=== PATIENT | female | born 1950 | race Caucasian/White ===

== ENCOUNTER → 2017-01-14 | Outpatient (CLI) | payer OTHER ==
[~2017-01-14] MED LIST: ASCO100T PO; CALC500C50; CALCIUM PO; GABA-112 PO; LEVO50TA6 PO; MAGNESIUM PO; MELO7.5T5 PO; OXYC-57 PO; PRLSR20 PO; VITAMIN C PO; ZINC PO
[2017-01-14 13:02] LABS: CHOLESTEROL/HDL RATIO 3.5; THYROID STIMULATING HORMONE 1.77 uIu/ml (0.300-4.500)
== END | disposition home or self-care (01) ==
LOC: C.LABPVFM 06:59
PROVIDERS: ATTEND Family Medicine
DX: Z13.220 Encounter for screening for lipoid disorders (principal); E03.9 Hypothyroidism, unspecified

== ENCOUNTER → 2017-03-03 | Outpatient (CLI) | payer OTHER ==
[~2017-03-03] MED LIST changes: -ASCO100T PO; +ASCO100T4 PO; +FMR25 PO
--- NOTE | 2017-03-03 15:44 | DIAGNOSTIC IMAGING REPORT ---
EXAMINATION: RENAL ULTRASOUND CLINICAL HISTORY: Renal cyst COMPARISON STUDY: 07/31/2015 FINDINGS: The right kidney measures 11.1 cm.. The left kidney measures 10 cm. There is no evidence of hydronephrosis. There is a 12 mm mid pole right renal cyst. There is a 9 mm mid pole left renal cyst. No bladder abnormalities are visualized. Bilateral ureteral jets were visualized. IMPRESSION : 12 mm right renal cyst, slightly smaller than on the preceding 2014 study. 9 mm mid pole left renal cyst, not previously described. Electronically signed by: Heron Quintana M.D. 03/03/2017 3:42 PM Dictated Date/Time: 03/03/2017 3:40 PM
== END | disposition home or self-care (01) ==
LOC: C.ULTR 14:57
PROVIDERS: ATTEND Nurse Practitioner
DX: N28.1 Cyst of kidney, acquired (principal)

== ENCOUNTER → 2017-03-09 | Outpatient (CLI) | payer OTHER ==
--- NOTE | 2017-03-09 15:50 | MAMMOGRAPHY REPORT ---
BILATERAL DIGITAL DIAGNOSTIC MAMMOGRAM TOMOSYNTHESIS WITH CAD AND TARGETED BILATERAL ULTRASOUND: 02/15 CLINICAL HISTORY: 66-year-old woman who noticed a lump in her lateral right breast approximately 3 w eeks ago. Also abnormal sensation/irritation of the right nipple when she is not wearing a bra. No skin changes of the nipple or nipple discharge. Family history of breast cancer = aunt, niece and cousin. Last mammogram was performed in 2000 and is unavailable. TECHNIQUE: Bilateral breast tomosynthesis in addition to standard 2D mammography was performed. Add itional spot magnification left CC and ML views were also obtained. Current study was also evaluate d with a Computer Aided Detection (CAD) system. COMPARISON: No prior exams were available for comparison. BREAST COMPOSITION: The tissue of both breasts is heterogeneously dense, which may obscure small ma sses. FINDINGS: There is a spiculated and irregular dense mass in the 9:00 far posterior right breast yocasta uring 16 x 25 x 16 mm. There is a questionable area of architectural distortion in the slightly lat eral anterior right breast, 3.6 cm distal to the nipple. There is a lobulated and circumscribed 7.1 x 6.5 x 5.6 mm mass in the lower inner middle to posterior right breast. There are coarse benign c alcifications in the right breast. No suspicious clustered microcalcifications. There is a possible 2.3 cm partially circumscribed and obscured mass in the superior middle one thir d of the left breast thought to project laterally based on the tomosynthesis MLO images. There are grouped microcalcifications in the superior middle one third of the left breast for which additional spot magnification views were obtained. With the additional spot magnification views, the calcific ations are somewhat coarse and loosely grouped, probably benign. No focal area of architectural dis tortion or spiculated mass is seen within the left breast. There is a circumscribed mass with lucen t notch in the far superior left breast on the MLO view, most likely an intramammary lymph node. Targeted ultrasound was performed in the superior left breast and also throughout the right breast i ncluding right axilla. Particular attention was paid to the area of palpable concern which was poin nina out by the patient, in the 9:00 right breast, 8 cm from the nipple. In the 9:00 right breast in the area of palpable concern, there is a hypoechoic solid shadowing spiculated mass measuring 27.4 x 17.8 x 14.6 mm. This correlates with the mammographic mass and is suspicious for malignancy. Def initive characterization with ultrasound guided core biopsy is recommended. Sonographic evaluation performed in the right axilla demonstrates one small morphologically normal lymph node. No suspicio us adenopathy. Additional scanning was performed in the lateral right breast to assess for the poss ible subtle area of architectural distortion only seen on the CC view. However, no definite correla te is seen. Scanning was performed in the lower inner quadrant of the right breast to assess for th e lobulated subcentimeter mammographic mass, but no discrete solid or cystic mass is identified. Sonographic evaluation in the superior left breast demonstrates a mixed echogenicity parallel circum scribed solid mass in the 1:00 axis, 4 cm from the nipple, measuring 21.1 x 12.6 x 18.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 IMPRESSION: ACR BI-RADS CATEGORY 5: HIGHLY SUGGESTIVE OF MALIGNANCY, TARGETED ULTRASOUND ACR BI-RAD S CATEGORY 5: HIGHLY SUGGESTIVE OF MALIGNANCY 1. Ultrasound guided core biopsy is recommended for a suspicious solid palpable spiculated 27 mm ma ss in the 9:00 right breast. 2. No suspicious right axillary lymphadenopathy is seen. 3. Pending pathology results in the 9:00 axis, there are indeterminate findings in the right breast without sonographic correlate, including a possible subtle area of architectural distortion in the lateral anterior breast only seen on the CC tomosynthesis images, and a lobulated 7 mm mass in the m edial breast. Ultimately, an MRI may be needed for further characterization. 4. A lobulated, partially circumscribed 2 cm mass in the superior left breast is thought to correla te with a benign fibroadenolipoma or hematoma on ultrasound, identified in the 1:00 axis. 5. There is a loose grouping of microcalcifications in the left upper outer quadrant for which a sh ort interval follow-up diagnostic mammogram including spot magnification views is recommended to ens ure stability in 6 months, given that no prior mammograms are available to demonstrate stability. These results and recommendations were discussed with the patient at the time of the exam. She tent atively scheduled the right breast biopsy prior to leaving our department. Approximately 10% of breast cancers are not detected with mammography. A negative mammographic repor t should not delay biopsy if a clinically suggestive mass is present. Cassy Mccain M.D. ay/:03/09/2017 15:06:56 Steel Die Press Set Up Operator: Rosita Jeffers RT(R)(M), [facility] letter sent: Abnormal 4/5 BI-RADS Code: ACR BI-RADS Category 5: Highly Suggestive Of Malignancy Ultrasound BI-RADS: ACR BI-RA DS Category 5: Highly Suggestive Of Malignancy
== END | disposition home or self-care (01) ==
LOC: C.MAMM 13:56
PROVIDERS: ATTEND Nurse Practitioner
DX: N64.4 Mastodynia (principal); N63 Unspecified lump in breast; Z80.3 Family history of malignant neoplasm of breast

== ENCOUNTER → 2017-03-17 | Outpatient (CLI) | payer OTHER ==
--- NOTE | 2017-03-17 13:12 | Discharge Instructions ---
Discharge Instructions Procedure Procedure Date: March 17, 2017. Reason for visit: Right Mass. Discharge Discharge Date: March 17, 2017. Discharge Diagnosis: post right breast ultrasound guided core biopsy Instructions Activity Recommendations: Additional Limitations (see below) Return to School/Work: no limitations Recommended Home Diet: No Limitations Provider Instructions: ACTIVITY RECOMMENDATIONS: * No lifting, pushing, pulling or exercising the affected side for three days. RETURN TO SCHOOL/WORK: * You may return to work/school after the procedure, but do not perform any strenuous activities for 24 to 48 hours. MEDICATIONS: * Tylenol (two 325 mg) every four to six hours if needed for mild pain (if not allergic to Tylenol). DIET: * Resume previous diet. SPECIAL CARE INSTRUCTIONS: * Keep biopsy site dry for 24 hours. May shower after 24 hours, but do not soak (bathe) incision. * May remove Tegaderm (plastic patch) tomorrow AFTER showering. * Leave the steri-strips on for one week. Allow the steri-strips to fall off by themselves. If not off after one week, you may remove them. You may place a Bandaid crosswise over the strips, if desired. * Apply ice 10 minutes on and 10 minutes off as needed. * Wear a bra at bedtime to sleep more comfortably for 2-3 days. * Your referring physician should have the results after approximately 5 to 7 business days. * Call for unusual bleeding, fever, drainage, etc or if you have any questions call [phone] during normal business hours or after hours call Dr Mccain, . FOLLOW UP VISIT: Follow-up with Referring Physician as scheduled. Allergies Coded Allergies: BEE STING (Verified Allergy, Severe, ANAPHYLACTIC, 03/15/09) Acetaminophen (Verified Allergy, Intermediate, NAUSEA, 09/29/12) Adhesives (Verified Allergy, Intermediate, RASH, 03/15/09) Hydrocodone (Verified Allergy, Intermediate, NAUSEA, 09/29/12) NSAIDs (Verified Allergy, Intermediate, SEVERE NAUSEA/DEHYDRATION, ) MD INSTRUCTED TO NEVER TAKE ANY NSAIDS Unclassified Drugs (Verified Allergy, Unknown, URATHANE CAUSES SKIN TO WEEP, 10/28/12) SHELLFISH (Verified Adverse Reaction, Mild, N/V, 03/15/09) Shannon Chandra Recommendations: Call your doctor if: * Temperature above 101 degrees * Pain not relieved by pain medicine ordered * There is increased drainage or redness from any incision * You have any unanswered questions or concerns. Your Doctors Instructions noted above were prepared by provider Cassy Mccain. Patient Signature Section: Patient Instructions Signature Page Lorainemitch Dennisonevie Patient (or Guardian) Signature/Date: I have read and understand the instructions given to me by my caregivers. Caregiver/RN/Doctor Signature/Date: The above-named patient and/or guardian has received patient instructions on this date. + Original Patient Signature Page (only) stays with chart. Please make copy for patient.
--- NOTE | 2017-03-18 08:26 | MAMMOGRAPHY REPORT ---
THIS REPORT HAS BEEN AMENDED. AMENDMENT: 03/25/2017 Cassy Mccain M.D. Pathology results from the ultrasound-guided core needle biopsy of a mass in the 9:00 right breast y ielded invasive ductal carcinoma, Jordy grade 2 of 3. ER and UT positive, HER-2/alan negative. The pathology results are concordant with the imaging appearance. Given the mammographic finding of questionable architectural distortion in the right breast, and no definite sonographic correlate, as well as dense breast bilaterally and newly diagnosed right breast cancer, recommend a bilateral breast MRI prior to definitive treatment. ULTRASOUND GUIDED BIOPSY RIGHT BREAST: 03/17/2017 CLINICAL HISTORY: 66-year-old woman presents for biopsy of a suspicious 27 mm spiculated mass in the 9:00 right breast. COMPARISON: Comparison is made to exams dated: 03/09/2017 mammogram and 03/09/2017 ultrasound - [facility]. PATIENT CONSENT: The procedure, risks and benefits were discussed with the patient and informed writ ten consent was obtained. Specific risks to this procedure include: bleeding, infection, puncture of adjacent structure, metal allergy, nontarget biopsy, sampling error and medication reaction. PROCEDURE DESCRIPTION: A time out was performed and the right breast was agreed as the site of biops y. The skin was prepped and draped in the usual sterile fashion. The solid spiculated hypoechoic mas s in the 9:00 right breast was chosen as the target for biopsy. Subcutaneous and intraparenchymal 1% buffered lidocaine was administered as local anesthesia. A skin incision was made. Through the inc ision, 3 samples were taken with a 14 gauge Achieve biopsy device. A metallic marker was placed at t he biopsy site. Hemostasis was achieved after manual compression. The patient tolerated the procedur e well and there was no immediate complication. The samples were sent expedited to the pathology de partment in an appropriately labeled container. Postprocedure right CC and ML tomosynthesis images were obtained. A new ribbon-shaped metallic biop sy marker is seen within the mammographic mass in question. No significant post biopsy hematoma is seen. Pending pathology results, bilateral breast MRI would be useful to exclude the possibility of any plummer spicious enhancing architectural distortion in the right breast, with the questionable mammographic finding but no sonographic correlate. IMPRESSION: ULTRASOUND GUIDED BIOPSY Status post ultrasound guided core needle biopsy of a suspicious right 9:00 breast mass, with biopsy marker placed at the site. The patient will receive notification of the biopsy results from her referring physician. Cassy Mccain M.D. ay/:03/17/2017 13:55:56 Archery Equipment Hay Sorter: Sharon BUCKLEY)([place]), [facility]
--- NOTE | 2017-03-18 08:29 | MAMMOGRAPHY REPORT ---
UNILATERAL RIGHT DIGITAL DIAGNOSTIC MAMMOGRAM TOMOSYNTHESIS: 03/17/2017 CLINICAL HISTORY: Suspicious spiculated mass in the 9:00 right breast. Patient presents for ultraso und-guided core biopsy. Please refer to the report from right breast ultrasound guided core biopsy performed at the same emperatriz e for full detail. IMPRESSION: POST PROCEDURE IMAGING FOR MARKER PLACEMENT Please refer to the report from right breast ultrasound guided core biopsy performed at the same emperatriz e for full detail. Approximately 10% of breast cancers are not detected with mammography. A negative mammographic repor t should not delay biopsy if a clinically suggestive mass is present. Cassy Mccain M.D. ay/:03/17/2017 13:14:37 Rn Teacher: Sharon RIKCETTS(Chaim)(M), [facility] BI-RADS Code: Post Procedure Imaging For Marker Placement
== END | disposition home or self-care (01) ==
LOC: C.MAMM 12:40
PROVIDERS: ATTEND Nurse Practitioner
DX: C50.411 Malignant neoplasm of upper-outer quadrant of right female breast (principal); Z17.0 Estrogen receptor positive status [ER+]

== ENCOUNTER → 2017-04-08 | Outpatient (CLI) | payer OTHER ==
--- NOTE | 2017-04-08 10:27 | DIAGNOSTIC IMAGING REPORT ---
PET/CT CLINICAL HISTORY: Breast cancer. COMPARISON STUDY: Renal ultrasound dated 03/03/2017. Ultrasound of the right breast dated 03/09/2017. TECHNIQUE: One hour following the IV administration of 14.69 mCi of F-18 FDG, PET/CT examination was performed from the orbital meatal line through the bony pelvis. Noncontrast CT is performed for the purposes of anatomic correlation and attenuation correction. Note that this does not reflect a diagnostic CT examination. Images were reviewed on a separate [employer] independent workstation. Fused images were obtained. Standard uptake values reported are maximum values within the region of interest expressed in gm/mL. FINDINGS: PET FINDINGS: Head and neck: There is expected physiologic activity within the visualized brain parenchyma at the skull base and the salivary glands. Thorax: Evaluation of the thorax demonstrates expected physiologic myocardial activity. There is a 1.7 x 2.5 cm irregular nodule in the posterior outer right breast seen on image #105. This is FDG avid with maximum SUV of 6.6. No right axillary or subpectoral lymphadenopathy is seen. No FDG avid lesions are identified in the left breast. No pulmonary lesions are seen. Abdomen and pelvis: There is expected activity within the liver, spleen, kidneys, renal collecting system, and bladder. Low-level bowel activity is likely within physical limits. Unenhanced CT images: Visualized brain parenchyma at the skull base is within normal limits. The bony orbits are intact. Orbital contents are normal as visualized. The imaged paranasal sinuses and the mastoid air cells are clear. The salivary and thyroid glands are normal as imaged. There is no cervical lymphadenopathy. The thoracic aorta is normal in caliber. There is no mediastinal or hilar adenopathy. The heart is normal in size and without pericardial effusion. Tiny hiatal hernia is observed. The lungs are clear. A 1.7 cm low-attenuation lesion is suggested in the left hepatic lobe just below the diaphragm image #109. This was not demonstrably FDG avid. The unenhanced liver is otherwise normal as visualized. A tiny calcified gallstone is identified. The gallbladder is otherwise unremarkable. The unenhanced spleen, adrenal glands, pancreas, and kidneys are otherwise grossly unremarkable. The abdominal aorta is normal in course and caliber noting mild atherosclerotic calcification. There is no bowel obstruction. There are scattered colonic diverticula without CT evidence of acute diverticulitis. A normal appendix is noted. There is no intraperitoneal free air or abdominal ascites. There is no abdominal, pelvic, or inguinal lymphadenopathy. The bladder, uterus, and adnexa are normal as imaged. The skeletal structures are osteopenic. No lytic or blastic bony lesions are seen. Minimal spondylotic change is seen throughout the spine. IMPRESSION: 1. There is an irregular 2.5 cm FDG avid mass lesion in the right breast as above. This is consistent with the patient's history of breast carcinoma. 2. There are no additional FDG avid lesions identified in either breast. There is no axillary or subpectoral lymphadenopathy. 3. There is no evidence of distant metastatic disease. 4. Question a 1.7 cm low-attenuation lesion in the left lobe of the liver. This was not FDG avid and is of low suspicion. This may represent a hemangioma and ultrasound of the liver is recommended for further assessment. 5. The lungs are clear. 6. Cholelithiasis. 7. Additional findings as above. Electronically signed by: Stefan Jean M.D. 04/08/2017 10:26 AM Dictated Date/Time: 04/08/2017 9:58 AM
== END | disposition home or self-care (01) ==
LOC: C.PET 07:18
PROVIDERS: ATTEND Internal Medicine Hematology & Oncology
DX: C50.411 Malignant neoplasm of upper-outer quadrant of right female breast (principal); K80.20 Calculus of gallbladder without cholecystitis without obstruction

== ENCOUNTER → 2017-04-17 | Outpatient (CLI) | payer OTHER ==
[~2017-04-17] MED LIST changes: +GADAVIST IV PRN
--- NOTE | 2017-04-20 13:17 | MAMMOGRAPHY REPORT ---
BREAST MRI OF BOTH BREASTS : 04/17/2017 CLINICAL HISTORY: Newly diagnosed right breast cancer. COMPARISON: Comparison is made to exams dated: 03/17/2017 mammogram, 03/17/2017 ultrasound biopsy, 2016 mammogram, and 03/09/2017 ultrasound - [facility]. Technique: The patient was placed prone in a dedicated breast imaging coil. Precontrast axial T1-ana maría ghted, axial T2-weighted fat saturation, and axial T1-weighted fat saturation images were obtained. After the administration of 7.5 mL of Gadavist IV contrast, sequential T1-weighted fat saturation javier ges were obtained. Subtraction images were obtained of the dynamic contrast enhanced sequences, and 3-D reformations were performed. The [employer] software was used for kinetic analysis. Findings: Right breast: There is mild background parenchymal enhancement. There is a spiculated enhancing irre gular mass within the right 8:00 to 8:30 breast posteriorly, measuring 2.0 x 1.7 x 2.7 cm (series 105 01 image 85 and series 6 image 102), consistent with biopsy-proven malignancy. Susceptibility artifa ct is seen within the mass from a biopsy marker clip. The mass demonstrates a mixed kinetic pattern including washout kinetics. Approximately 4 cm anterior to the mass at approximately 8:30 middle dep th is a 6 mm circumscribed enhancing oval mass with corresponding T2 hyperintensity and a mixed kinet ic pattern including washout and plateau kinetics (series 48017 image 83). While this may represent an intramammary lymph node or other benign mass, a second look ultrasound is recommended. Superior t o the malignancy in the right breast at approximately 9:00 middle depth, there is a heterogeneously e nhancing mass which measures 13 x 6 mm and demonstrates a mixed pattern including washout and plateau kinetics (series 26791 images 74-75). This mass is indeterminate and second look ultrasound is recom mended. No suspicious enhancement is seen at the site of the small mammographic mass in the right lo wer inner quadrant; given the benign morphology mammographically and lack of corresponding MRI abnorm ality, the mass is felt to be benign. Left breast: There is mild background parenchymal enhancement. There are no suspicious enhancing mas ses or areas of abnormal enhancement within the left breast. No abnormal enhancement is seen within the area of questionable mammographic architectural distortion; given the lack of corresponding MRI a bnormality, the mammographic finding is benign and felt to represent normal fibroglandular tissue. There is no evidence of axillary adenopathy. The chest wall structures are negative. The visualized extramammary soft tissues are grossly unremarkable. IMPRESSION: ACR BI-RADS CATEGORY 0: INCOMPLETE EVALUATION: NEED ADDITIONAL IMAGING EVALUATION 1. Spiculated enhancing 2.7 cm mass in the right 8:00 to 8:30 breast, consistent with the biopsy-pro sarah malignancy. 2. Heterogeneously enhancing 13 mm mass in the right 9:00 breast and circumscribed 6 mm enhancing ma ss in the right breast at 8:30, which demonstrate mixed kinetics including washout kinetics. The mass es are indeterminate and second look ultrasound is recommended for further evaluation. If suspicious abnormalities are seen on ultrasound, then ultrasound-guided biopsy is recommended (1 hour time slot ). 3. No MRI evidence of malignancy in the left breast. Krystina Clarke M.D. ah/:04/18/2017 20:41:05 Film Reader: chalk molding machine operator, [facility] letter sent: Addl Imaging 0 BI-RADS Code: ACR BI-RADS Category 0: Incomplete Evaluation: Need Additional Imaging Evaluation
== END | disposition home or self-care (01) ==
LOC: C.MRI 12:18
PROVIDERS: ATTEND Nurse Practitioner
DX: C50.411 Malignant neoplasm of upper-outer quadrant of right female breast (principal); N63 Unspecified lump in breast

== ENCOUNTER → 2017-04-29 | Outpatient (CLI) | payer OTHER ==
[~2017-04-29] MED LIST changes: -GADAVIST IV PRN
--- NOTE | 2017-04-29 16:40 | MAMMOGRAPHY REPORT ---
ULTRASOUND OF RIGHT BREAST: 04/29/2017 CLINICAL HISTORY: Biopsy proven right breast cancer, with two enhancing masses seen within the right breast on recent breast MRI, for which second look ultrasound was recommended. COMPARISON: Comparison is made to exams dated: 04/17/2017 breast MRI, 03/17/2017 mammogram, 03/17/2017 ult rasound biopsy, 03/09/2017 mammogram, and 03/09/2017 ultrasound - [facility]. TECHNIQUE: Real-time targeted ultrasound of the right breast was performed. FINDINGS: Real-time, high resolution targeted ultrasound was performed of the area of the masses see n on breast MRI, in the right 8:30 to 9:00 breast. In the right breast at 9:00, 5 cm from the nipple , there is an oval circumscribed 10 x 3 x 5 mm mass, which has an echogenic fatty hilum and periphera l hypoechoic cortex and central internal vascularity. This has the sonographic appearance of a morph ologically normal intramammary lymph node. This is felt to correspond with the circumscribed enhanci ng mass seen on breast MRI, which also has MRI features of an intramammary lymph node including T2 hy perintensity, mixed kinetic pattern, and circumscribed margins. The breast tissue is markedly heterogeneous on ultrasound, with multiple areas of hypoechoic shadowin g seen. 2 areas of ill-defined hypoechoic shadowing are seen within the right breast at 9:30, 8 cm f rom the nipple, as well as right breast at 9:30, 5 cm from the nipple. The shadowing areas do not cl early persist on orthogonal imaging and therefore could represent normal shadowing fibroglandular tis joe. The areas do not clearly correspond with the enhancing mass seen on MRI. The mass on the MRI r emains indeterminate and MRI guided biopsy is recommended for further evaluation. IMPRESSION: ACR BI-RADS CATEGORY 4: SUSPICIOUS - FOLLOW-UP RECOMMENDED 1. Morphologically normal intramammary lymph node in the right breast at 9:00 on ultrasound, which c orresponds with the circumscribed enhancing mass on recent breast MRI. 2. No clear sonographic correlate for the heterogeneously enhancing mass in the right 9:00 breast se en on recent breast MRI. The mass remains indeterminate and an MRI guided core needle biopsy is gunner mmended for further evaluation. A phone call was made to the physician's office to confirm faxed results were received. The patient was verbally notified of the results. She tentatively scheduled the biopsy before leaving the depart ment. Krystina Clarke M.D. ah/:04/29/2017 15:17:41 Site Identification Specialist: Cinthya BUCKLEY)([place]), [facility] letter sent: Abnormal 4/5 BI-RADS Code: ACR BI-RADS Category 4: Suspicious
== END | disposition home or self-care (01) ==
LOC: C.MAMM 13:41
PROVIDERS: ATTEND Surgery
DX: N63 Unspecified lump in breast (principal)

== ENCOUNTER → 2017-05-13 | Outpatient (CLI) | payer OTHER ==
[~2017-05-13] MED LIST changes: +GADAVIST IV PRN; +LIDO/EPINEPHRINE/SOD BICARB 20 ML VIAL INFIL ONE; +XYLOCAINE 1%/SOD BICARB 20 ML VIAL INFIL ONE
--- NOTE | 2017-05-13 11:55 | Discharge Instructions ---
Discharge Instructions Procedure Procedure Date: May 13, 2017. Reason for visit: Right Mass. Discharge Discharge Date: May 13, 2017. Discharge Diagnosis: status post breast biopsy Instructions Activity Recommendations: Additional Limitations (see below) Return to School/Work: no limitations Recommended Home Diet: No Limitations Provider Instructions: ACTIVITY RECOMMENDATIONS: * No lifting, pushing, pulling or exercising the affected side for three days. RETURN TO SCHOOL/WORK: * You may return to work/school after the procedure, but do not perform any strenuous activities for 24 to 48 hours. MEDICATIONS: * Tylenol (two 325 mg) every four to six hours if needed for mild pain (if not allergic to Tylenol). DIET: * Resume previous diet. SPECIAL CARE INSTRUCTIONS: * Keep biopsy site dry for 24 hours. May shower after 24 hours, but do not soak (bathe) incision. * May remove Tegaderm (plastic patch) tomorrow AFTER showering. * Leave the steri-strips on for one week. Allow the steri-strips to fall off by themselves. If not off after one week, you may remove them. You may place a Bandaid crosswise over the strips, if desired. * Apply ice 10 minutes on and 10 minutes off as needed. * Wear a bra at bedtime to sleep more comfortably for 2-3 days. * Your referring physician should have the results after approximately 5 to 7 business days. * Call for unusual bleeding, fever, drainage, etc or if you have any questions call during normal business hours or after hours call Dr Clarke, [phone]. FOLLOW UP VISIT: Follow-up with Referring Physician as scheduled. Allergies Coded Allergies: BEE STING (Verified Allergy, Severe, ANAPHYLACTIC, 03/15/09) Acetaminophen (Verified Allergy, Intermediate, NAUSEA, 09/29/12) Adhesives (Verified Allergy, Intermediate, RASH, 03/15/09) Hydrocodone (Verified Allergy, Intermediate, NAUSEA, 09/29/12) NSAIDs (Verified Allergy, Intermediate, SEVERE NAUSEA/DEHYDRATION, ) MD INSTRUCTED TO NEVER TAKE ANY NSAIDS Unclassified Drugs (Verified Allergy, Unknown, URATHANE CAUSES SKIN TO WEEP, 10/28/12) Shellfish (Verified Adverse Reaction, Mild, N/V, 03/15/09) Shannon Chandra Recommendations: Call your doctor if: * Temperature above 101 degrees * Pain not relieved by pain medicine ordered * There is increased drainage or redness from any incision * You have any unanswered questions or concerns. Your Doctors Instructions noted above were prepared by provider Krystina Clarke. Patient Signature Section: Patient Instructions Signature Page Lorainemitch Dennisonevie Patient (or Guardian) Signature/Date: I have read and understand the instructions given to me by my caregivers. Caregiver/RN/Doctor Signature/Date: The above-named patient and/or guardian has received patient instructions on this date. + Original Patient Signature Page (only) stays with chart. Please make copy for patient.
--- NOTE | 2017-05-13 13:06 | MAMMOGRAPHY REPORT ---
UNILATERAL RIGHT DIGITAL DIAGNOSTIC MAMMOGRAM TOMOSYNTHESIS: 05/13/2017 CLINICAL HISTORY: Status post right breast MRI guided biopsy. TECHNIQUE: Breast tomosynthesis in addition to standard 2D mammography was performed. Postprocedura l right CC and ML tomosynthesis images including C views were obtained. COMPARISON: Comparison is made to exams dated: 05/13/2017 MRI biopsy, 04/29/2017 ultrasound, 04/17/2017 breast MRI, 03/17/2017 mammogram, 03/17/2017 ultrasound biopsy, and 03/09/2017 mammogram - [facility]. BREAST COMPOSITION: The tissue of the right breast is heterogeneously dense, which may obscure small masses. FINDINGS: A new biopsy marker clip is seen in the expected location of the biopsied enhancing mass a t 9:00 seen on MRI. No significant postbiopsy hematoma is seen. IMPRESSION: POST PROCEDURE IMAGING FOR MARKER PLACEMENT New biopsy marker clip status post MRI guided biopsy of a right 9:00 breast mass. Pathology results are pending. Approximately 10% of breast cancers are not detected with mammography. A negative mammographic report should not delay biopsy if a clinically suggestive mass is present. Krystina Clarke M.D. /:05/13/2017 12:42:45 Stopper Grinder: Cinthya Mayorga, [facility] BI-RADS Code: Post Procedure Imaging For Marker Placement
--- NOTE | 2017-05-13 16:09 | MAMMOGRAPHY REPORT ---
MRI BIOPSY RIGHT BREAST: 05/13/2017 CLINICAL HISTORY: Biopsy proven right breast cancer, with a heterogeneously enhancing mass in the rig ht 9:00 breast on MRI. COMPARISON: Comparison is made to exams dated: 04/29/2017 ultrasound, 04/17/2017 breast MRI, 03/17/2017 m ammogram, and 03/17/2017 ultrasound biopsy - [facility]. Technique: Written informed consent was obtained from the patient after discussion of the procedure a s well as risks of MRI guided core needle biopsy. A preprocedural timeout was performed prior to sta rting the procedure. The patient was placed prone on a 1.5 Laina MR scanner. The lateral aspect of the right breast was c leansed with ChloraPrep. The right breast was positioned in a dedicated breast coil and MRI guidance grid device. After localizing sequences were obtained, pre-and postcontrast axial sequences were performed which c onfirm the persistence of the enhancing lesion in the right 9:00 breast. 7.7 mL of Gadavist IV contr ast was administered. Using the images, targeting was performed using the [email or web address] software. The skin was prepped with Betadine through the grid and after local anesthesia was achieved, an intro ducer sheath and localizing obturator were placed into the site using a lateral approach. The locati on of the obturator sheath was confirmed with additional images. Subsequently, multiple samples were obtained from the site using a [employer] 9-gauge vacuum-assisted core biopsy device. Postbiopsy images demonstrate postbiopsy changes in the expected location of the enh ancing mass. Through the introducer sheath, a marker clip was placed. Direct pressure was held at t he biopsy site until hemostasis was achieved. The patient tolerated the procedure without immediate complication. Mammography was obtained at the breast center after completion of the biopsy to confirm marker clip placement. Please see the separa te dictation of the exam for further details. The specimens were sent to pathology for analysis. Wo und care instructions were given to the patient. IMPRESSION: MRI BIOPSY MRI guided core needle biopsy of the enhancing right 9:00 breast mass, with clip placement. The ashwin ent will receive pathology results from her referring provider. Krystina Clarke M.D. /:05/13/2017 13:16:11 Hat Model: Cinthya Mayorga, [facility]
== END | disposition home or self-care (01) ==
LOC: C.MRI 09:49
PROVIDERS: ATTEND Surgery
DX: R92.8 Other abnormal and inconclusive findings on diagnostic imaging of breast (principal); C50.911 Malignant neoplasm of unspecified site of right female breast

== ENCOUNTER → 2017-07-28 | Outpatient (CLI) | payer OTHER ==
[~2017-07-28] MED LIST changes: +ASCO100T PO; -ASCO100T4 PO; -CALC500C50; -CALCIUM PO; -FMR25 PO; -GADAVIST IV PRN; -LIDO/EPINEPHRINE/SOD BICARB 20 ML VIAL INFIL ONE; -MAGNESIUM PO; -VITAMIN C PO; -XYLOCAINE 1%/SOD BICARB 20 ML VIAL INFIL ONE; -ZINC PO
[2017-07-28 17:43] LABS: BLOOD UREA NITROGEN 11 mg/dl (7-18); BUN/CREATININE RATIO 17.5 (10-20); CALCIUM 9.5 mg/dl (8.5-10.1); CARBON DIOXIDE 28 mmol/L (21-32); CHLORIDE 105 mmol/L (98-107); CREATININE 0.64 mg/dl (0.60-1.20); GLUCOSE 107 mg/dl (70-99); POTASSIUM 3.6 mmol/L (3.5-5.1); SODIUM 138 mmol/L (136-145)
[2017-07-28 17:45] LABS: BASO % 0.4 %; BASO ABS # 0.03 K/uL (0-0.2); COMPLETE YES; EOS % 2.3 %; HEMATOCRIT 42.7 % (37-47); IG% 0.2 %; LYMPH % 14.8 %; MEAN CELL VOLUME 90.3 fL (80-100); MEAN CORPUSCULAR HEMOGLOBIN 30.7 pg (25-34); MEAN PLATELET VOLUME 10.2 fL (7.4-10.4); MONO % 7.3 %; PLATELET COUNT 199 K/uL (130-400); RED BLOOD COUNT 4.73 M/uL (4.2-5.4)
== END | disposition home or self-care (01) ==
LOC: C.LABPVFM 10:10
PROVIDERS: ATTEND Nurse Practitioner
DX: Z51.0 Encounter for antineoplastic radiation therapy (principal); C50.111 Malignant neoplasm of central portion of right female breast; E03.9 Hypothyroidism, unspecified; R03.0 Elevated blood-pressure reading, without diagnosis of hypertension

== ENCOUNTER → 2017-08-03 | Outpatient (CLI) | payer OTHER | END | disposition home or self-care (01) | LOC: C.PAPS 13:14 | PROVIDERS: ATTEND Nurse Practitioner | DX: Z12.4 Encounter for screening for malignant neoplasm of cervix (principal) ==

== ENCOUNTER → 2017-09-08 | Outpatient (CLI) | payer OTHER ==
[~2017-09-08] MED LIST changes: -ASCO100T PO; +FMR25 PO; -OXYC-57 PO
--- NOTE | 2017-09-08 15:17 | MAMMOGRAPHY REPORT ---
BILATERAL DIGITAL DIAGNOSTIC MAMMOGRAM TOMOSYNTHESIS WITH CAD AND TARGETED RIGHT ULTRASOUND: 09/08/20 CLINICAL HISTORY: 67-year-old woman with a personal history of right breast invasive ductal carcinoma presents for first evaluation status post right lumpectomy and radiation therapy. She also presents for follow-up of probably benign left breast calcifications. TECHNIQUE: Bilateral breast tomosynthesis in addition to standard 2D mammography was performed. Spot magnification left CC and ML views were also obtained. Current study was also evaluated with a Comp uter Aided Detection (CAD) system. COMPARISON: Comparison is made to exams dated: 05/13/2017 mammogram, 05/13/2017 MRI biopsy, 04/29/2017 ultrasound, 04/17/2017 breast MRI, and 03/17/2017 mammogram - [facility]. BREAST COMPOSITION: The tissue of both breasts is heterogeneously dense, which may obscure small mas ses. FINDINGS: There is mild skin thickening, most prominent in the medial right breast and trabecular leodan ma of the right breast, likely related to prior treatment. A 3.2 x 3.3 cm mass with associated archi tectural distortion is identified in the upper outer posterior right breast, denoting the surgical ca vity. Both the ribbon-shaped biopsy marker clip within the biopsy proven carcinoma and dumbbell shap ed biopsy clip denoting the benign MRI biopsy have been surgically excised. There is no obvious new suspicious mass, asymmetry or suspicious microcalcifications within the right breast. There is a benign coarse calcification and associated nodularity stable in the upper inner middle one third of the left breast. There is a loose grouping of 4-5 somewhat coarse calcifications in the up per outer middle one third of the left breast for which additional spot magnification views were obta ined. On the spot magnification views, these calcifications are stable comparing to the prior spot m agnification views. No new suspicious grouping or cluster is identified. These most likely represen t benign calcifications. No new suspicious mass, new calcifications, asymmetries or distortions are seen in the left breast. Targeted ultrasound was performed along the surgical scar in the 9:00 right breast. There is a hypoe choic to anechoic mass with linear internal septations most likely representing a postsurgical seroma and/or evolving hematoma. There is also edema noted surrounding fat lobules more superficially in t he 9:00 breast. These findings are compatible with the lumpectomy site. IMPRESSION: ACR-BI-RADS CATEGORY 3: PROBABLY BENIGN, TARGETED ULTRASOUND ACR-BI-RADS CATEGORY 3: PRO BABLY BENIGN 1. Expected post treatment changes in the right breast, without definite mammographic evidence of ma lignancy. A six-month follow-up right diagnostic tomosynthesis mammogram and possible ultrasound is recommended to ensure stability in 6 months after treatment. 2. Stable mammographic appearance of the left breast including probably benign 4-5 loosely grouped s omewhat coarse calcifications in the upper outer quadrant. Another six-month follow-up left diagnost ic tomosynthesis mammogram and spot magnification views is recommended given that these calcification s were identified on the patient's baseline. These results and recommendations were discussed with the patient at the time of exam. Approximately 10% of breast cancers are not detected with mammography. A negative mammographic report should not delay biopsy if a clinically suggestive mass is present. Cassy Mccain M.D. ay/:09/08/2017 12:24:39 Flexographic Press Set Up Operator: Lorrie BUCKLEY)([place]), [facility] letter sent: Follow Up Recommended 3 BI-RADS Code: ACR-BI-RADS Category 3: Probably Benign Ultrasound BI-RADS: ACR-BI-RADS Category 3: Pr obably Benign
== END | disposition home or self-care (01) ==
LOC: C.MAMM 10:25
PROVIDERS: ATTEND Surgery
DX: R92.1 Mammographic calcification found on diagnostic imaging of breast (principal); Z85.3 Personal history of malignant neoplasm of breast; Z98.890 Other specified postprocedural states

== ENCOUNTER → 2017-09-09 | Outpatient (CLI) | payer OTHER ==
[2017-09-09 14:21] VITALS: BP 147/94; PULSE 75; TEMP 36.8; O2SAT 97
--- NOTE | 2017-09-09 16:35 | Radiation Oncology Follow-Up ---
Radiation Oncology Follow-Up Date of Visit Sep 09, 2017. Reason For Visit One-month follow-up in cancer survivorship care plan Radiation Completion Date 07/29/17 Diagnosis (1) Cancer of central portion of right female breast Status: Acute Onset Date: 03/17/2017 Stage: ll (A) Permanent Comment: Abnormal right breast mammogram Status post ultrasound-guided core needle biopsy 03/17/2017 Estrogen receptor positive, progesterone receptor positive, HER-2/alan negative Invasive ductal carcinoma grade 2 Status post MRI guided biopsy 05/13/2017, benign Pro-signal score 58 Status post partial mastectomy and sentinel lymph node biopsy 05/27/2017 Stage pT2 [id number] Oncotype DX score of 10 Status post completion of radiation 07/29/2017. She received 3850 cGy utilizing accelerated partial breast irradiation Last Edited By: Becka Allen on Aug 05, 2017 10:59 History of Present Illness Ms. Oliva has a a family history of breast cancer. The patient had a aunt and a cousin who developed breast cancer in the 60s or later and a niece who developed breast cancer in her 50s. She did undergo the BRCA testing and was found negative. She has been followed with screening mammograms. The patient noted a lump in her lateral right breast in early February of this year. She also identified abnormal sensation/irritation of the right nipple when she was not wearing a bra. She noted no skin changes or nipple discharge. Her prior mammogram to that point was in 2000. Patient therefore underwent lateral digital diagnostic mammogram with targeted breast ultrasound on 03/09/2017. This showed a spiculated and irregular dense mass at the 9:00 far posterior right breast position measuring 1.6 x 2.5 x 1.6 cm. There was a questionable area of architectural distortion in the slightly lateral anterior right breast 3.6 cm distal to the nipple. There was a lobulated circumscribed 7.1 x 6.5 x 5.6 mm mass in the lower inner middle to posterior right breast. There was coarse benign calcifications in the right breast but no suspicious clustered microcalcifications appreciated. A possible 2.3 cm partially circumscribed cured mass was noted to superior middle one third of the left breast. There were grouped microcalcifications in the superior middle one third of the left breast for which additional spot magnification views were obtained. With the additional spot magnification views to calcifications are somewhat coarse loosely grouped and probably benign. A circumscribed mass was noted in the far superior left breast on the MLO view likely an intramammary lymph node. Targeted ultrasound was performed in the superior left breast and throughout the right breast including the right axilla. Particular attention was paid to the palpable concern as indicated by the patient. This was at the 9 o'clock position of the right breast 8 cm from the nipple. A hypoechoic solid shadowing spiculated mass was appreciated measuring 2.7 x 1.8 x 1.5 cm. This correlated with the mammographic mass and was suspicious for malignancies. An ultrasound-guided core biopsy was recommended. Sonographic evaluation of the right axilla demonstrated 1 small morphologically normal lymph node with no suspicious lymphadenopathy. Additional scanning of the lateral right breast showed no definite correlation with the mammographic suspicious findings noted. Sonographic evaluation of the superior left breast demonstrated a mixed echogenic solid mass at the 1:00 axis 4 cm from the nipple measuring 2.1 x 1.3 x 1.9 cm. 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 On 03/17/2017 patient underwent ultrasound-guided core biopsy of the right breast at the 9 o'clock position. This revealed an invasive ductal carcinoma, Jordy grade 2 of 3. No lymphovascular invasion was identified. Estrogen receptors were positive (100%, strong intensity, H score 300). Progesterone receptors were positive (50%, variable in intensity, H score 100). HER-2/alan overexpression was negative and confirmed an negative by FISH analysis confirming the appropriate results obtained by IHC. Ki-67 proliferation index was 12%. Case: [id number]. Patient was seen by Dr. hCarles Dickson for evaluation of adjuvant treatment considerations. He recommended a staging PET/CT scan which was performed on . This showed a 1.7 x 2.5 cm irregular nodule in the posterior outer right breast with a maximum SUV of 6.6. No right axillary and subpectoral lymphadenopathy was seen. No FDG avid lesions were noted in the left breast. No evidence of distant metastatic disease was noted. A 1.7 cm low attenuation lesion was noted in the left lobe of the liver. This was not FDG avid and was of low suspicion. Patient went on to have bilateral breast MRIs on 04/17/2017. In the right breast a spiculated enhancing irregular mass was seen within the right 8 12/24/1930 position posteriorly measuring 2.0 x 1.7 x 2.7 cm. This was consistent with the biopsy-proven malignancy. Proxy 4 cm anterior to the mass at the 8:30 middle depth was a 6 mm circumscribed enhancing oval mass. Recommended second look ultrasound was made. Superior to the malignancy in the right breast at approximately 9:00 middle depth was a enhancing mass measuring 1.3 x 0.6 cm that was indeterminate second look ultrasound recommended. The left breast was unremarkable. No axillary adenopathy was identified. Patient was subsequently seen by Dr. Farhana Aden to discuss further diagnostic procedures and treatment options. On 05/13/2017 she ordered an MRI guided biopsy of the right breast the 9 o'clock position. This revealed benign breast tissue without evidence of in situ or invasive carcinoma. Case: [id number]. After discussion of treatment options patient agreed to proceed with a breast conserving technique. Therefore on 05/27/2017 patient underwent a right breast lumpectomy and sentinel node biopsies. 2 sentinel nodes were identified and both were negative for metastatic carcinoma. The lumpectomy specimen revealed a residual invasive carcinoma histologic grade 2 measuring 2.9 cm in greatest dimension. All inked margins of resection were negative for carcinoma 0.2 mm away from the anterior margin and 2 mm away from the inked posterior margin. Additional medial, superior, lateral and inferior margins were taken and were negative. A total of 3 nodes were identified 2 sentinel as noted above negative and one non-sentinel which was also negative. Final AJCC pathologic staging was therefore pT2 pN0(sn-), ER positive, UT positive and HER-2/alan negative. Accession #: [id number]. The tissue was subsequently sent for Sm[employer]run PAM50 genomic evaluation. The results indicated an intermediate risk score of 58. The intermediate category ranged from 41-60. This is therefore high intermediate risk region. The tissue is also been sent for Oncotype DX recurrence score evaluation. These results are pending. We were asked to see the patient to discuss the role of adjuvant radiation. It is for this reason the patient is seen in referral. The options of treatment were reviewed. She underwent a CT simulation was found to be a candidate for accelerated partial breast irradiation. This was completed 07/29/2017. She received 3850 cGy Interim History She has been doing well over this past month. She has noted a pink discoloration to the breast. There is mild discomfort. She is noted no masses no change of the axilla. She said no swelling of her arm. She is started antiestrogen therapy with Femara. She is tolerating this well. She was seen by medical oncology and mammogram was ordered as well as an ultrasound. Study did not show any evidence of malignancy. There was recommendation for follow- up in 6 months of both breasts. Allergies Coded Allergies: BEE STING (Verified Allergy, Severe, ANAPHYLACTIC, 03/15/09) Adhesives (Verified Allergy, Intermediate, RASH, 03/15/09) Unclassified Drugs (Verified Allergy, Unknown, URATHANE CAUSES SKIN TO WEEP, 10/28/12) Shellfish (Verified Adverse Reaction, Mild, N/V, 03/15/09) Home Medications Scheduled Gabapentin (Neurontin), 100 MG PO TID Letrozole (Femara), 1 TAB PO DAILY Levothyroxine Sodium (Levothyroxine Sodium), 1 TAB PO DAILY Omeprazole (Prilosec), 20 MG PO DAILY Scheduled PRN Meloxicam (Mobic), 7.5 MG PO DAILY PRN for prn Review of Systems Gastrointestinal: GI Comments: loose stools Oral: Symptoms: No Problems Respiratory: Symptoms: Dry Cough Other Respiratory: cough started after finished RT better now Urinary: Symptoms: WNL Skin: Symptoms: Faint Erythema Other Skin Symptoms: patient states skin feels warm to touch Breast: Right Upper Arm Measurement: 29.5 Right Mid Arm Measurement: 24.6 Right Wrist Measurement: 16.3 Left Upper Arm Measurement: 28.7 Left Mid Arm Measurement: 25.3 Left Wrist Measurement: 16.4 Arm Dominence: Right Physical Exam Vital Signs Date Time Temp Pulse Resp B/P (MAP) Pulse Ox O2 Delivery O2 Flow Rate FiO2 09/09/17 14:21 36.8 75 20 147/94 97 Pain: Pain Onset: years Pain Duration: intermet Side: Left Patient Pain Scale: 0 - 10 Initial Pain Intensity: 6.0 Pain Description: Sharp Additional Comments: pt states needs knee replacemente Fatigue: None General Appearance: no apparent distress Eyes: normal inspection, EOMI ENT: normal ENT inspection, hearing grossly normal Neck: no adenopathy, thyroid normal Respiratory/Chest: lungs clear, no respiratory distress, no accessory muscle use Breast: Breast examination reveals well-healed incisions of the right breast. There are no masses or tenderness and no axillary adenopathy. There is resolving erythema in the central portion of the breast. There is no edema. She has no skin retractions or nipple changes. She has no wet or dry desquamation. Using the Hayward score cosmesis she has a good outcome. Left breast showed no masses or tenderness no axillary adenopathy. Cardiovascular: regular rate, rhythm, no gallop, no murmur Abdomen: non tender, soft, no organomegaly Neurologic/Psychiatric: no motor/sensory deficits, alert, normal mood/affect Skin: warm/dry Laboratory Studies Test 07/28/17 13:45 White Blood Count 8.10 K/uL (4.8-10.8) Red Blood Count 4.73 M/uL (4.2-5.4) Hemoglobin 14.5 g/dL (12.0-16.0) Hematocrit 42.7 % (37-47) Mean Corpuscular Volume 90.3 fL (80-100) Mean Corpuscular Hemoglobin 30.7 pg (25-34) Mean Corpuscular Hemoglobin Concent 34.0 g/dl (32-36) Platelet Count 199 K/uL (130-400) Mean Platelet Volume 10.2 fL (7.4-10.4) Neutrophils (%) (Auto) 75.0 % Lymphocytes (%) (Auto) 14.8 % Monocytes (%) (Auto) 7.3 % Eosinophils (%) (Auto) 2.3 % Basophils (%) (Auto) 0.4 % Neutrophils # (Auto) 6.07 K/uL (1.4-6.5) Lymphocytes # (Auto) 1.20 K/uL (1.2-3.4) Monocytes # (Auto) 0.59 K/uL (0.11-0.59) Eosinophils # (Auto) 0.19 K/uL (0-0.5) Basophils # (Auto) 0.03 K/uL (0-0.2) RDW Standard Deviation 44.6 fL (36.4-46.3) RDW Coefficient of Variation 13.6 % (11.5-14.5) Immature Granulocyte % (Auto) 0.2 % Immature Granulocyte # (Auto) 0.02 K/uL (0.00-0.02) Sodium Level 138 mmol/L (136-145) Potassium Level 3.6 mmol/L (3.5-5.1) Chloride Level 105 mmol/L (98-107) Carbon Dioxide Level 28 mmol/L (21-32) Anion Gap 5.0 mmol/L (3-11) Blood Urea Nitrogen 11 mg/dl (7-18) Creatinine 0.64 mg/dl (0.60-1.20) Estimated GFR () 107.0 Estimated GFR (Non- 92.3 BUN/Creatinine Ratio 17.5 (10-20) Random Glucose 107 mg/dl (70-99) Calcium Level 9.5 mg/dl (8.5-10.1) Thyroid Stimulating Hormone (TSH) 2.030 uIu/ml (0.300-4.500) Additional Studies Patient: RODY OLIVA [facility] Rec: [id number] Address1: [address] [place] [address] [facility] [id number] Date: 1950 Sex: F Ref Phy: Librado Manzo MD Att Phy: Farhana Aden MD Elizabeth Phy: Tamia John C.R.N.P Inter Phy: Cassy Mccain MD [facility] Zip: [place] [address] SC: C.MAMM Report #: [id number] Diagnostics Tech: LUH Diagnosis: 6 MO F/U LEFT Service Date: 09/08/17 MNE: [id number] Ordering Dr: Farhana Aden MD CC: Farhana Aden MD CONF: DICTATED BY: Cassy Mccain MD MAMMOGRAPHY REPORT BILATERAL DIGITAL DIAGNOSTIC MAMMOGRAM TOMOSYNTHESIS WITH CAD AND TARGETED RIGHT ULTRASOUND: 09/08/2017 CLINICAL HISTORY: 67-year-old woman with a personal history of right breast invasive ductal carcinoma presents for first evaluation status post right lumpectomy and radiation therapy. She also presents for follow-up of probably benign left breast calcifications. TECHNIQUE: Bilateral breast tomosynthesis in addition to standard 2D mammography was performed. Spot magnification left CC and ML views were also obtained. Current study was also evaluated with a Computer Aided Detection (CAD ) system. COMPARISON: Comparison is made to exams dated: 05/13/2017 mammogram, 05/13/2017 MRI biopsy, 04/29/2017 ultrasound, 04/17/2017 breast MRI, and 03/17/2017 mammogram - [facility]. BREAST COMPOSITION: The tissue of both breasts is heterogeneously dense, which may obscure small masses. FINDINGS: There is mild skin thickening, most prominent in the medial right breast and trabecular edema of the right breast, likely related to prior treatment. A 3.2 x 3.3 cm mass with associated architectural distortion is identified in the upper outer posterior right breast, denoting the surgical cavity. Both the ribbon-shaped biopsy marker clip within the biopsy proven carcinoma and dumbbell shaped biopsy clip denoting the benign MRI biopsy have been surgically excised. There is no obvious new suspicious mass, asymmetry or suspicious microcalcifications within the right breast. There is a benign coarse calcification and associated nodularity stable in the upper inner middle one third of the left breast. There is a loose grouping of 4 -5 somewhat coarse calcifications in the upper outer middle one third of the left breast for which additional spot magnification views were obtained. On the spot magnification views, these calcifications are stable comparing to the prior spot magnification views. No new suspicious grouping or cluster is identified. These most likely represent benign calcifications. No new suspicious mass, new calcifications, asymmetries or distortions are seen in the left breast. Targeted ultrasound was performed along the surgical scar in the 9:00 right breast. There is a hypoechoic to anechoic mass with linear internal septations most likely representing a postsurgical seroma and/or evolving hematoma. There is also edema noted surrounding fat lobules more superficially in the 9:00 breast. These findings are compatible with the lumpectomy site. IMPRESSION: ACR-BI-RADS CATEGORY 3: PROBABLY BENIGN, TARGETED ULTRASOUND ACR-BI -RADS CATEGORY 3: PROBABLY BENIGN 1. Expected post treatment changes in the right breast, without definite mammographic evidence of malignancy. A six-month follow-up right diagnostic tomosynthesis mammogram and possible ultrasound is recommended to ensure stability in 6 months after treatment. 2. Stable mammographic appearance of the left breast including probably benign 4-5 loosely grouped somewhat coarse calcifications in the upper outer quadrant. Another six-month follow-up left diagnostic tomosynthesis mammogram and spot magnification views is recommended given that these calcifications were identified on the patient's baseline. These results and recommendations were discussed with the patient at the time of exam. Approximately 10% of breast cancers are not detected with mammography. A negative mammographic report should not delay biopsy if a clinically suggestive mass is present. Cassy Mccain M.D. ay/:09/08/2017 12:24:39 Prompt Care Rn: Lorrie RICKETTS (R)([place]), [facility] letter sent: Follow Up Recommended 3 BI-RADS Code: ACR-BI-RADS Category 3: Probably Benign Ultrasound BI-RADS: ACR- BI-RADS Category 3: Probably Benign Dictated by: Cassy Mccain MD Signed by: Cassy Mccain MD Assessment & Plan Plan: Continue with scheduled mammography. Continue regular follow-up with Dr. Manzo, Dr. Aden, and her primary care physician. She continues on Femara. We asked her to return to our office in 6 months. Today we completed a cancer survivorship care plan. A copy of the document was given to the patient. She was also given a survivorship booklet. We discussed the mild discoloration of the breast. This is post radiation changes. We reviewed that this will look more brown with hyperpigmentation and then will fade. She may call our office if she has any questions or concerns in the interim. Total Time In Follow-Up I spent 20 minutes speaking to the patient and performing examination. I spent 20 minutes reviewing information, preparing the survivorship document, and completing this note. Copy To Farhana Aden MD; Librado Manzo MD; Tamia John, C.R.N.P Problem Qualifiers (1) Cancer of central portion of right female breast: Estrogen receptor status: positive Qualified Codes: C50.111 - Malignant neoplasm of central portion of right female breast; Z17.0 - Estrogen receptor positive status [ER+]
== END | disposition home or self-care (01) ==
LOC: C.ONC 14:13
PROVIDERS: ATTEND Physician Assistant Medical
DX: Z08 Encounter for follow-up examination after completed treatment for malignant neoplasm (principal); Z92.3 Personal history of irradiation; Z85.3 Personal history of malignant neoplasm of breast

== ENCOUNTER → 2017-11-06 | Outpatient (CLI) | payer OTHER ==
--- NOTE | 2017-11-06 08:03 | DIAGNOSTIC IMAGING REPORT ---
GALLBLADDER-ABD LIMITED CLINICAL HISTORY: 67 years-old Female presenting with K21.0 Chronic reflux [id number] Abdominal pain, RUQR11.0. TECHNIQUE: Real-time grayscale and limited color Doppler ultrasound imaging of the abdomen limited to the right upper quadrant was performed. COMPARISON: Renal ultrasound from 03/03/2017. FINDINGS: Pancreas: Visualized portions of the pancreatic head and body normal. Liver: Normal echogenicity and echotexture. The liver measures 13.3 cm in maximal sagittal dimension. No sonographic evidence of hepatic mass. Main portal vein patent with normal directional flow. Biliary: No intrahepatic biliary ductal dilatation. Common bile duct measures up to 5 mm in diameter. Gallbladder: No evidence of gallstones, gallbladder wall thickening, gallbladder distention, or pericholecystic fluid or inflammatory change. Right kidney: Interpolar 1.2 cm simple cyst. No hydronephrosis. Ascites: None. IMPRESSION: Essentially normal right upper quadrant ultrasound. Electronically signed by: Sravan Duque M.D. 11/06/2017 8:01 AM Dictated Date/Time: 11/06/2017 7:53 AM
== END | disposition home or self-care (01) ==
LOC: C.ULTR 07:19
PROVIDERS: ATTEND Nurse Practitioner
DX: K21.0 Gastro-esophageal reflux disease with esophagitis (principal); R11.0 Nausea; R10.11 Right upper quadrant pain

== ENCOUNTER → 2017-11-27 | Outpatient (CLI) | payer OTHER ==
--- NOTE | 2017-11-27 16:25 | DIAGNOSTIC IMAGING REPORT ---
PELVIS/BILATERAL HIP 2 VIEWS CLINICAL HISTORY: BILATERAL HIPS pain COMPARISON STUDY: None FINDINGS: Moderate degenerative change right hip. Significant degenerative change left hip. Peripheral osteophytic change surrounding the left femoral head and associated acetabulum. No abnormal soft tissue calcifications. No evidence for acetabular protrusion. Moderate degenerative change of the sacroiliac joints bilaterally. IMPRESSION: 1. Significant degenerative change left hip. 2. Moderate degenerative change right hip. 3. No acute process. The above report was generated using voice recognition software. It may contain grammatical, syntax or spelling errors. Electronically signed by: Chandler Adams M.D. 11/27/2017 4:24 PM Dictated Date/Time: 11/27/2017 4:23 PM
== END | disposition home or self-care (01) ==
LOC: C.RADPV 16:05
PROVIDERS: ATTEND Nurse Practitioner
DX: M25.551 Pain in right hip (principal); M25.552 Pain in left hip; M89.8X5 Other specified disorders of bone, thigh

== ENCOUNTER → 2018-02-09 | Outpatient (CLI) | payer OTHER ==
--- NOTE | 2018-02-09 13:04 | MAMMOGRAPHY REPORT ---
BILATERAL DIGITAL DIAGNOSTIC MAMMOGRAM TOMOSYNTHESIS WITH CAD AND TARGETED RIGHT ULTRASOUND: 8 CLINICAL HISTORY: 67-year-old woman with a personal history of right breast cancer status post breast conservation treatment presents with sensation of pain and bulging/swelling in the lower inner quadr ant of the right breast, which seems to occur at the end of the day. Patient also reports pain with underwire bras. Also due for follow-up of probably benign calcifications in the upper outer quadrant of the left breast. TECHNIQUE: Bilateral breast tomosynthesis in addition to standard 2D mammography was performed. Spot magnification left CC and ML views were also obtained. A repeat right MLO 2D and tomosynthesis view was attempted to include more posterior tissue. Current study was also evaluated with a Computer ded Detection (CAD) system. COMPARISON: Comparison is made to exams dated: 09/08/2017 ultrasound, 09/08/2017 mammogram, 7 mammogram, 05/13/2017 MRI biopsy, 03/17/2017 mammogram, and 03/09/2017 mammogram - [facility]. BREAST COMPOSITION: The tissue of both breasts is heterogeneously dense, which may obscure small mas ses. FINDINGS: Linear scar markers overlie the right upper outer quadrant and right axilla. There is a sq uare shaped pain marker overlying the lower inner middle one third of the right breast. There is exp ected architectural distortion in the upper outer posterior right breast, at the site of prior lumpec everardo. Mild diffuse right breast skin thickening and trabecular edema persists comparing to prior pos ttreatment mammograms. No obvious new mass, asymmetry, distortion or calcifications are identified i n the right breast in the area of swelling and pain or elsewhere throughout the remainder of the righ t breast. There is scar retraction and decreased size of a focal asymmetry likely representing posts urgical seroma and/or hematoma, in the upper outer right breast at the site of prior lumpectomy. The coarse heterogeneous loosely grouped calcifications in the upper outer quadrant of the left breast a re stable based on spot magnification views dating back to at least 03/09/2017, therefore likely benig n. No new suspicious mass, architectural distortion or cluster of microcalcifications is seen in the left breast. Targeted ultrasound was performed in the area of swelling and pain in the 4:00 right breast, 4 cm fro m the nipple. There is evidence of trabecular edema surrounding fat lobules in the 4:00 right breast and also skin thickening, measuring up to 4.1 mm in thickness. However, there is no evidence of a d rainable fluid collection or suspicious solid or cystic mass. IMPRESSION: ACR-BI-RADS CATEGORY 3: PROBABLY BENIGN, TARGETED ULTRASOUND ACR-BI-RADS CATEGORY 3: PRO BABLY BENIGN 1. There is no new suspicious mammographic or targeted sonographic evidence of malignancy in the are a of pain and swelling in the 4:00 right breast. There is evidence of skin thickening and trabecular edema in this location, suggesting the symptoms may be due to those findings, possibly related to pr ior treatment. Continued clinical follow-up and clinical monitoring is recommended, as biopsy of a c linically suspicious mass should not be precluded by negative imaging. 2. There is probable scar retraction and decreasing postsurgical seroma and/or hematoma in the upper outer posterior right breast at the site of prior lumpectomy. Another short interval follow-up righ t diagnostic mammogram is recommended to ensure stability in 6 months. 3. Stable loosely grouped coarse heterogeneous calcifications in the upper outer middle one third of the left breast for 1 year. Another 12 month follow-up left diagnostic mammogram including spot mag nification views is recommended to ensure longer stability. These results and recommendations were discussed with the patient at the time of the exam. She tenta tively scheduled a follow-up appointment prior to leaving the department. Approximately 10% of breast cancers are not detected with mammography. A negative mammographic report should not delay biopsy if a clinically suggestive mass is present. Cassy Mccain M.D. ay/:02/09/2018 09:45:00 Marketing Team Lead: Cinthya RICKETTS(R)(M), [facility] letter sent: Follow Up Recommended 3 BI-RADS Code: ACR-BI-RADS Category 3: Probably Benign Ultrasound BI-RADS: ACR-BI-RADS Category 3: Pr obably Benign
== END | disposition home or self-care (01) ==
LOC: C.MAMM 08:53
PROVIDERS: ATTEND Internal Medicine Hematology & Oncology
DX: N64.4 Mastodynia (principal); R60.0 Localized edema; R92.1 Mammographic calcification found on diagnostic imaging of breast; Z85.3 Personal history of malignant neoplasm of breast

== ENCOUNTER → 2018-03-09 | Outpatient (CLI) | payer OTHER ==
[~2018-03-09] MED LIST changes: +LISI10TA PO
[2018-03-09 14:06] VITALS: BP 149/87; PULSE 76; TEMP 36.8; O2SAT 97
--- NOTE | 2018-03-09 16:08 | Radiation Oncology Follow-Up ---
Radiation Oncology Follow-Up Date of Visit Mar 09, 2018. Reason For Visit Six-month follow-up Radiation Completion Date 07/29/17 APBI Diagnosis (1) Cancer of central portion of right female breast Status: Resolved Onset Date: 03/17/2017 Stage: ll (A) Permanent Comment: Abnormal right breast mammogram Status post ultrasound-guided core needle biopsy 03/17/2017 Estrogen receptor positive, progesterone receptor positive, HER-2/alan negative Invasive ductal carcinoma grade 2 Status post MRI guided biopsy 05/13/2017, benign Pro-signal score 58 Status post partial mastectomy and sentinel lymph node biopsy 05/27/2017 Stage pT2 [id number] Oncotype DX score of 10 Status post completion of radiation 07/29/2017. She received 3850 cGy utilizing accelerated partial breast irradiation Last Edited By: Becka Allen on Aug 05, 2017 10:59 History of Present Illness Ms. Oliva has a a family history of breast cancer. The patient had a aunt and a cousin who developed breast cancer in the 60s or later and a niece who developed breast cancer in her 50s. She did undergo the BRCA testing and was found negative. She has been followed with screening mammograms. The patient noted a lump in her lateral right breast in early February of this year. She also identified abnormal sensation/irritation of the right nipple when she was not wearing a bra. She noted no skin changes or nipple discharge. Her prior mammogram to that point was in 2000. Patient therefore underwent lateral digital diagnostic mammogram with targeted breast ultrasound on 03/09/2017. This showed a spiculated and irregular dense mass at the 9:00 far posterior right breast position measuring 1.6 x 2.5 x 1.6 cm. There was a questionable area of architectural distortion in the slightly lateral anterior right breast 3.6 cm distal to the nipple. There was a lobulated circumscribed 7.1 x 6.5 x 5.6 mm mass in the lower inner middle to posterior right breast. There was coarse benign calcifications in the right breast but no suspicious clustered microcalcifications appreciated. A possible 2.3 cm partially circumscribed cured mass was noted to superior middle one third of the left breast. There were grouped microcalcifications in the superior middle one third of the left breast for which additional spot magnification views were obtained. With the additional spot magnification views to calcifications are somewhat coarse loosely grouped and probably benign. A circumscribed mass was noted in the far superior left breast on the MLO view likely an intramammary lymph node. Targeted ultrasound was performed in the superior left breast and throughout the right breast including the right axilla. Particular attention was paid to the palpable concern as indicated by the patient. This was at the 9 o'clock position of the right breast 8 cm from the nipple. A hypoechoic solid shadowing spiculated mass was appreciated measuring 2.7 x 1.8 x 1.5 cm. This correlated with the mammographic mass and was suspicious for malignancies. An ultrasound-guided core biopsy was recommended. Sonographic evaluation of the right axilla demonstrated 1 small morphologically normal lymph node with no suspicious lymphadenopathy. Additional scanning of the lateral right breast showed no definite correlation with the mammographic suspicious findings noted. Sonographic evaluation of the superior left breast demonstrated a mixed echogenic solid mass at the 1:00 axis 4 cm from the nipple measuring 2.1 x 1.3 x 1.9 cm. 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 On 03/17/2017 patient underwent ultrasound-guided core biopsy of the right breast at the 9 o'clock position. This revealed an invasive ductal carcinoma, Jodry grade 2 of 3. No lymphovascular invasion was identified. Estrogen receptors were positive (100%, strong intensity, H score 300). Progesterone receptors were positive (50%, variable in intensity, H score 100). HER-2/alan overexpression was negative and confirmed an negative by FISH analysis confirming the appropriate results obtained by IHC. Ki-67 proliferation index was 12%. Case: [id number]. Patient was seen by Dr. Charles Dickson for evaluation of adjuvant treatment considerations. He recommended a staging PET/CT scan which was performed on . This showed a 1.7 x 2.5 cm irregular nodule in the posterior outer right breast with a maximum SUV of 6.6. No right axillary and subpectoral lymphadenopathy was seen. No FDG avid lesions were noted in the left breast. No evidence of distant metastatic disease was noted. A 1.7 cm low attenuation lesion was noted in the left lobe of the liver. This was not FDG avid and was of low suspicion. Patient went on to have bilateral breast MRIs on 04/17/2017. In the right breast a spiculated enhancing irregular mass was seen within the right 8 12/24/1930 position posteriorly measuring 2.0 x 1.7 x 2.7 cm. This was consistent with the biopsy-proven malignancy. Proxy 4 cm anterior to the mass at the 8:30 middle depth was a 6 mm circumscribed enhancing oval mass. Recommended second look ultrasound was made. Superior to the malignancy in the right breast at approximately 9:00 middle depth was a enhancing mass measuring 1.3 x 0.6 cm that was indeterminate second look ultrasound recommended. The left breast was unremarkable. No axillary adenopathy was identified. Patient was subsequently seen by Dr. Farhana Aden to discuss further diagnostic procedures and treatment options. On 05/13/2017 she ordered an MRI guided biopsy of the right breast the 9 o'clock position. This revealed benign breast tissue without evidence of in situ or invasive carcinoma. Case: [id number]. After discussion of treatment options patient agreed to proceed with a breast conserving technique. Therefore on 05/27/2017 patient underwent a right breast lumpectomy and sentinel node biopsies. 2 sentinel nodes were identified and both were negative for metastatic carcinoma. The lumpectomy specimen revealed a residual invasive carcinoma histologic grade 2 measuring 2.9 cm in greatest dimension. All inked margins of resection were negative for carcinoma 0.2 mm away from the anterior margin and 2 mm away from the inked posterior margin. Additional medial, superior, lateral and inferior margins were taken and were negative. A total of 3 nodes were identified 2 sentinel as noted above negative and one non-sentinel which was also negative. Final AJCC pathologic staging was therefore pT2 pN0(sn-), ER positive, NJ positive and HER-2/alan negative. Accession #: [id number]. The tissue was subsequently sent for Layer PAM50 genomic evaluation. The results indicated an intermediate risk score of 58. The intermediate category ranged from 41-60. This is therefore high intermediate risk region. The tissue is also been sent for Oncotype DX recurrence score evaluation. These results are pending. We were asked to see the patient to discuss the role of adjuvant radiation. It is for this reason the patient is seen in referral. The options of treatment were reviewed. She underwent a CT simulation was found to be a candidate for accelerated partial breast irradiation. This was completed 07/29/2017. She received 3850 cGy Interim History She has been having a discomfort of the right breast towards the inframammary fold. She made the decision to stop wearing an underwire bra. With doing that the discomfort has resolved. She has an occasional mild pink discoloration to the rest after working for a long period of time. She also notices some swelling in the lower portion of the breast. She is noted no masses and no change of the axilla. She is on Femara. She does have some generalized joint discomfort. She also has dryness of the skin for which she is trying to moisturize frequently. She is up-to-date on mammography. Allergies Coded Allergies: BEE STING (Verified Allergy, Severe, ANAPHYLACTIC, 03/15/09) Adhesives (Verified Allergy, Intermediate, RASH, 03/15/09) Unclassified Drugs (Verified Allergy, Unknown, URATHANE CAUSES SKIN TO WEEP, 10/28/12) Shellfish (Verified Adverse Reaction, Mild, N/V, 03/15/09) Home Medications Scheduled Gabapentin (Neurontin), 100 MG PO TID Letrozole (Femara), 1 TAB PO DAILY Levothyroxine Sodium (Levothyroxine Sodium), 1 TAB PO DAILY Lisinopril (Prinivil), 10 MG PO DAILY Omeprazole (Prilosec), 20 MG PO DAILY Scheduled PRN Meloxicam (Mobic), 7.5 MG PO DAILY PRN for prn Review of Systems Gastrointestinal: Symptoms: WNL Oral: Symptoms: No Problems Respiratory: Symptoms: WNL Urinary: Symptoms: WNL Breast: Right Upper Arm Measurement: 30.5 Right Mid Arm Measurement: 25.3 Right Wrist Measurement: 16.3 Left Upper Arm Measurement: 30.3 Left Mid Arm Measurement: 25.8 Left Wrist Measurement: 16.5 Arm Dominence: Right Physical Exam Vital Signs Date Time Temp Pulse Resp B/P (MAP) Pulse Ox O2 Delivery O2 Flow Rate FiO2 03/09/18 14:06 36.8 76 16 149/87 97 Fatigue: None General Appearance: no apparent distress Eyes: normal inspection, EOMI ENT: normal ENT inspection, hearing grossly normal Neck: no adenopathy, thyroid normal Respiratory/Chest: lungs clear, no respiratory distress, no accessory muscle use Breast: Breast examination reveals well-healed incisions of the right breast. It is noted that she has some mild edema in the lower quadrants. There are no masses or tenderness and no axillary adenopathy. Using the Pingree score cosmesis she has a good outcome. The left breast showed no masses or tenderness and no axillary adenopathy. Cardiovascular: regular rate, rhythm, no gallop, no murmur Extremities: no pedal edema Neurologic/Psychiatric: no motor/sensory deficits, alert, normal mood/affect Skin: warm/dry Pain Management Patient Reports Pain: No Pain Location: None Patient Preferred Pain Scale: 0 - 10 Initial Pain Intensity: 0.0 Pain Management Plan She currently denied pain those stated occasionally she has arthralgias. Laboratory Laboratory Results: not applicable Pathology Pathology Results: were reviewed, and pertinent findings noted in HPI Imaging Imaging Studies: were reviewed, and pertinent findings noted below Imaging Comments BILATERAL DIGITAL DIAGNOSTIC MAMMOGRAM TOMOSYNTHESIS WITH CAD AND TARGETED RIGHT ULTRASOUND: 02/09/2018 CLINICAL HISTORY: 67-year-old woman with a personal history of right breast cancer status post breast conservation treatment presents with sensation of pain and bulging/swelling in the lower inner quadrant of the right breast, which seems to occur at the end of the day. Patient also reports pain with underwire bras. Also due for follow-up of probably benign calcifications in the upper outer quadrant of the left breast. TECHNIQUE: Bilateral breast tomosynthesis in addition to standard 2D mammography was performed. Spot magnification left CC and ML views were also obtained. A repeat right MLO 2D and tomosynthesis view was attempted to include more posterior tissue. Current study was also evaluated with a Computer Aided Detection (CAD) system. COMPARISON: Comparison is made to exams dated: 09/08/2017 ultrasound, 2016 mammogram, 05/13/2017 mammogram, 05/13/2017 MRI biopsy, 03/17/2017 mammogram, and 03/09/2017 mammogram - [facility]. BREAST COMPOSITION: The tissue of both breasts is heterogeneously dense, which may obscure small masses. FINDINGS: Linear scar markers overlie the right upper outer quadrant and right axilla. There is a square shaped pain marker overlying the lower inner middle one third of the right breast. There is expected architectural distortion in the upper outer posterior right breast, at the site of prior lumpectomy. Mild diffuse right breast skin thickening and trabecular edema persists comparing to prior posttreatment mammograms. No obvious new mass, asymmetry, distortion or calcifications are identified in the right breast in the area of swelling and pain or elsewhere throughout the remainder of the right breast. There is scar retraction and decreased size of a focal asymmetry likely representing postsurgical seroma and/or hematoma, in the upper outer right breast at the site of prior lumpectomy. The coarse heterogeneous loosely grouped calcifications in the upper outer quadrant of the left breast are stable based on spot magnification views dating back to at least 03/09/2017, therefore likely benign. No new suspicious mass, architectural distortion or cluster of microcalcifications is seen in the left breast. Targeted ultrasound was performed in the area of swelling and pain in the 4:00 right breast, 4 cm from the nipple. There is evidence of trabecular edema surrounding fat lobules in the 4:00 right breast and also skin thickening, measuring up to 4.1 mm in thickness. However, there is no evidence of a drainable fluid collection or suspicious solid or cystic mass. IMPRESSION: ACR-BI-RADS CATEGORY 3: PROBABLY BENIGN, TARGETED ULTRASOUND ACR-BI -RADS CATEGORY 3: PROBABLY BENIGN 1. There is no new suspicious mammographic or targeted sonographic evidence of malignancy in the area of pain and swelling in the 4:00 right breast. There is evidence of skin thickening and trabecular edema in this location, suggesting the symptoms may be due to those findings, possibly related to prior treatment. Continued clinical follow-up and clinical monitoring is recommended, as biopsy of a clinically suspicious mass should not be precluded by negative imaging. 2. There is probable scar retraction and decreasing postsurgical seroma and/or hematoma in the upper outer posterior right breast at the site of prior lumpectomy. Another short interval follow-up right diagnostic mammogram is recommended to ensure stability in 6 months. 3. Stable loosely grouped coarse heterogeneous calcifications in the upper outer middle one third of the left breast for 1 year. Another 12 month follow- up left diagnostic mammogram including spot magnification views is recommended to ensure longer stability. These results and recommendations were discussed with the patient at the time of the exam. She tentatively scheduled a follow-up appointment prior to leaving the department. Approximately 10% of breast cancers are not detected with mammography. A negative mammographic report should not delay biopsy if a clinically suggestive mass is present. Cassy Mccain M.D. ay/:02/09/2018 09:45:00 [employer] Operator: Cinthya BUCKLEY)([employer]), [facility] letter sent: Follow Up Recommended 3 BI-RADS Code: ACR-BI-RADS Category 3: Probably Benign Ultrasound BI-RADS: ACR- BI-RADS Category 3: Probably Benign Dictated by: Cassy Mccain MD Signed by: Cassy Mccain MD Additional Studies Plan: Continue with scheduled mammography. Continue follow-up with Dr. Manzo. She continues on Femara. We discussed the edema of her breast. I recommended light massage and instruction was given. She will refrain from using an underwire bra. We asked her to return to our office in 1 year. She may call if she has any questions or concerns in the interim. Total Time In Follow-Up I spent 20 minutes speaking to the patient in performing examination. I spent 15 minutes reviewing information and completing this note. Copy To Farhana Aden MD; Librado Manzo MD; Tamia John C.R.N.P Problem Qualifiers (1) Cancer of central portion of right female breast: Estrogen receptor status: positive Qualified Codes: C50.111 - Malignant neoplasm of central portion of right female breast; Z17.0 - Estrogen receptor positive status [ER+]
== END | disposition home or self-care (01) ==
LOC: C.ONC 13:40
PROVIDERS: ATTEND Physician Assistant Medical
DX: Z08 Encounter for follow-up examination after completed treatment for malignant neoplasm (principal); Z92.3 Personal history of irradiation; Z85.3 Personal history of malignant neoplasm of breast

== ENCOUNTER 2020-06-05 05:19 | Inpatient (IN) ==
--- NOTE | 2020-05-06 14:19 | PAT Medication Instructions ---
Medication Instructions Date of Service May 06, 2020 Home Medications Medication Instructions Recorded meloxicam 7.5 mg tablet 7.5 mg PO BID #180 tab 06/02/19 gabapentin 100 mg capsule 100 mg PO QID #360 cap 11/24/19 3-in-1 Commode #1 ea 12/15/19 meloxicam 7.5 mg tablet 7.5 mg PO BID gabapentin 100 mg capsule 100 mg PO QID ascorbic acid (vitamin C) [Vitamin C] 500 mg PO BID cholecalciferol (vitamin D3) [Vitamin D3] 1,000 unit PO QAM letrozole 2.5 mg PO QDL levothyroxine 50 mcg PO QAM lisinopril 20 mg PO QPM omeprazole 20 mg PO QPM calcium carb-D3-mag ox-zinc ox [Flaco Mag Zinc Plus D3] 1 tab PO QPM ASK your surgeon for instructions meloxicam 7.5 mg tablet 7.5 mg PO BID ASK your prescriber and surgeon letrozole 2.5 mg PO QDL DO NOT take the morning of surgery ascorbic acid (vitamin C) [Vitamin C] 500 mg PO BID cholecalciferol (vitamin D3) [Vitamin D3] 1,000 unit PO QAM Take morning of surgery With a small sip of water, OTHERWISE NOTHING TO EAT OR DRINK AFTER MIDNIGHT: gabapentin 100 mg capsule 100 mg PO QID levothyroxine 50 mcg PO QAM Take evening before surgery gabapentin 100 mg capsule 100 mg PO QID ascorbic acid (vitamin C) [Vitamin C] 500 mg PO BID lisinopril 20 mg PO QPM omeprazole 20 mg PO QPM calcium carb-D3-mag ox-zinc ox [Flaco Mag Zinc Plus D3] 1 tab PO QPM Other Notes If you have any questions please call us at [phone] or [phone] or [phone] or [phone]
--- NOTE | 2020-05-10 09:12 | Anesthesiology Consultation ---
Date of Service May 10, 2020 Assessment & Plan (1) Encounter for pre-operative examination: - Abnormal preop CXR: awaiting response from PCP (Dr. Tamia Henry). Per PAT assessment on 05/10: Travel screen negative. No known COVID-19 positive contacts. No current COVID-19 related symptoms. No hx of COVID-19 testing. Patient scheduled for preop protocol COVID-19 testing 05/31 ([facility]). Awaiting results. Chart Review Chart Review: Patient seen in Pre Admission Testing Teaching & Discussion Pre-Anesthesia Teaching/Discussion Notes: Instructed NPO after midnight before surgery,except medications with 15 cc of water. Medication instructions provided according to the PAT guidelines. History Surgery Operation Date: 03/16/20 08:50 Proposed Procedures p Left Total Hip Replacement - Charles Robles MD Operation Date: 06/05/20 08:50 Proposed Procedures p Left Total Hip Arthroplasty - Charles Robles MD Height/Weight Height: 5 ft 5 in Weight: 89.1 kg Allergies Allergy/AdvReac Type Severity Reaction Status Date / Time bee venom protein (honey bee) Allergy Severe ANAPHYLACTI Verified 05/02/20 11:56 C adhesive Allergy Intermediate RASH Verified 05/02/20 11:56 shellfish derived AdvReac Mild N/V Verified 05/02/20 11:56 urathane AdvReac Severe Blister-STEVE Uncoded 05/02/20 11:56 PRENE Medications Home Medications Medication Instructions Recorded Confirmed Last Taken gabapentin 100 mg capsule 100 mg PO QID #360 cap 11/24/19 05/02/20 Unknown 3-in-1 Commode #1 ea 12/15/19 04/16/20 Unknown ascorbic acid (vitamin C) [Vitamin 500 mg PO BID 02/13/20 05/02/20 Unknown C] cholecalciferol (vitamin D3) 1,000 unit PO QAM 02/13/20 05/02/20 Unknown [Vitamin D3] letrozole 2.5 mg PO QDL 02/13/20 05/02/20 Unknown omeprazole 20 mg PO QPM 02/13/20 05/02/20 Unknown calcium carb-D3-mag ox-zinc ox 1 tab PO QPM 05/02/20 05/02/20 Unknown [Flaco Mag Zinc Plus D3] levothyroxine 50 mcg tablet 50 mcg PO QAM #90 tab 05/07/20 Unknown lisinopril 20 mg tablet 20 mg PO QPM #90 tab 05/07/20 Unknown meloxicam 7.5 mg tablet 7.5 mg PO BID #180 tab 05/07/20 Unknown Past Medical History Medical History (Updated 05/10/20 @ 09:41 by Aliya Durham) Breast cancer 2017 s/p lumpectomy with LND + radiation Chronic back pain Chronic reflux esophagitis occasional Elevated cholesterol Generalized joint pain History of esophageal stricture with dilitation x1 and surgical incision Hypothyroidism Kidney cysts bilateral Limb alert care status Right side 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 Varicose vein of leg Exercise / Class Metabolic Activity III < 4 Walking/Shop/Light housework Past Family History Family History Family/Other Breast cancer niece Aunt Breast cancer Father Myocardial infarction Mother Stroke Brother Heart disease Denies family history of Ovarian cancer Prostate cancer Colorectal cancer Past Surgical History Surgical History History of Achilles tendon repair right History of adenoidectomy History of arthroscopy of both knees History of colonoscopy History of laminectomy L4-L5 History of lumpectomy Right with lymph nodes removed History of tonsillectomy History of tooth extraction wisdom teeth History of total right knee replacement History of tubal ligation Past Anesthesia History No Family Hx of Anesthesia Complications and Other (*awareness with right TKA*) History of PONV No Hx of PONV and No Hx of Motion Sickness Social History Smoking Status: Former smoker tobacco type: cigarettes Do You Dip or Chew Tobacco: No Smoking End Date: QUIT 20 YRS AGO Hx Alcohol Use: No Hx Substance Use: No substance use type: does not use Review of Systems Occastional reflux. Patient denies chest pain, shortness of breath, cough, whee zing, palpitations. Physical Exam Vital Signs VITALS BP 159/92 P 76 TEMP 98.4 SP02 97%RA RESP 16 PHYSICAL Full neck and c-spine range of motion. Full TMJ range of motion. TMD 3 finger breaths Mallampati Score 1 Dentition: full dentures upper/lower Lungs: clear throughout to auscultation Cardiac: regular rate and rhythm, no murmurs noted Spine: normal Carotid arteries: negative bruit Extremities: no edema Testing Laboratory Results 05/10/20 09:21 06/25/20 09:21 PT 10.6 Seconds (9.0-12.0) 05/10/20 09:21 INR 1.0 (0.9-1.1) 05/10/20 09:21 APTT 29.7 Seconds (21.0-31.0) 05/10/20 09:21 Blood Type AB Negative 05/10/20 09:21 Antibody Screen NEGATIVE 05/10/20 09:21 Electrocardiogram Date: 05/10/20 NSR at 72bpm. unconfirmed report. Chest X-Ray Date: 05/10/20 Nonspecific 1 cm substernal opacity visualized on the lateral view. Although likely representing an area of atelectasis or scarring, this opacity is indeterminate. Short-term radiographic follow-up or CT scanning is recommended in follow-up. Report faxed to PCP.
--- NOTE | 2020-05-10 09:47 | XRay Report ---
XR chest Pre-admission PA/Lat CLINICAL HISTORY: Preoperative chest COMPARISON STUDY: May 2012 FINDINGS: Study is rotated. The heart is normal in size. There is no failure. There is no lobar conso lidation. There is a substernal 1 cm opacity visualized in the lateral view, likely representing atel ectasis or scarring. There is a linear parenchymal opacity at the left lung base, likely representing subsegmental atelectasis. There are no significant pleural effusions.[There is a suspected hiatal he rnia. IMPRESSION: 1. Nonspecific 1 cm substernal opacity visualized on the lateral view. Although likely representing a n area of atelectasis or scarring, this opacity is indeterminate. Short-term radiographic follow-up o r CT scanning is recommended in follow-up ACT 112: Negative or not required by law. Electronically signed by: Heron Quintana M.D. 05/10/2020 9:46 AM
[2020-05-10 10:48] LABS: Basophils # (auto) 0.03 K/uL (0-0.2); Basophils % (auto) 0.5 %; Eosinophils # (auto) 0.35 K/uL (0-0.5); Eosinophils % (auto) 6.2 %; Hematocrit (blood only) 42.9 % (37-47); Hemoglobin 14.3 g/dL (12.0-16.0); Immature Granulocytes # (auto) 0.01 K/uL (0.00-0.02); Immature Granulocytes % (auto) 0.2 %; Lymphocytes # (auto) 1.46 K/uL (1.2-3.4); Lymphocytes % (auto) 25.8 %; Mean Corpuscular Hemoglobin 30.1 pg (25-34); Mean Corpuscular Hgb Conc 33.3 g/dL (32-36); Mean Corpuscular Volume 90.3 fL (80-100); Mean Platelet Volume 10.4 fL (7.4-10.4); Monocytes # (auto) 0.53 K/uL (0.11-0.59); Monocytes % (auto) 9.4 %; Neutrophils # (auto) 3.28 K/uL (1.4-6.5); Neutrophils % (auto) 57.9 %; Platelet Count 190 K/uL (130-400); RDW Coefficient of Variation 13.5 % (11.5-14.5); RDW Standard Deviation 44.6 fL (36.4-46.3); Red Blood Count 4.75 M/uL (4.2-5.4); White Blood Count 5.66 K/uL (4.8-10.8)
[2020-05-10 10:53] LABS: BUN Creatinine Ratio 24.9 (10-20); Blood Urea Nitrogen 18 mg/dl (7-18); C Reactive Protein < 0.29 mg/dl (0-0.29); Calcium 9.2 mg/dl (8.5-10.1); Carbon Dioxide 26 mmol/L (21-32); Chloride 113 mmol/L (98-107); Creatinine Clr Calc Pharmacy 79.1 ml/min; Est GFR (African American) 96.7; Est GFR (Non-African American) 83.4; Glucose 102 mg/dl (70-99); Potassium 3.9 mmol/L (3.5-5.1); Sodium 142 mmol/L (136-145)
[2020-05-10 10:57] LABS: Partial Thromboplastin Ratio 1.1; Partial Thromboplastin Time 29.7 Seconds (21.0-31.0); Prothrombin Time 10.6 Seconds (9.0-12.0)
--- NOTE | 2020-05-10 21:46 | Electrocardiogram Report ---
Test Reason : Blood Pressure : / mmHG Vent. Rate : 072 BPM Atrial Rate : 072 BPM P-R Int : 192 ms QRS Dur : 084 ms QT Int : 408 ms P-R-T Axes : 067 054 056 degrees QTc Int : 446 ms Normal sinus rhythm Normal ECG When compared with ECG of 10-JUN-2012 09:43, No significant change was found Confirmed by Trent Puga ([id number]) on 05/10/2020 9:45:39 PM Referred By: Charles Robles Confirmed By:Trent Puga
--- NOTE | 2020-06-02 10:39 | History and Physical Report ---
DATE OF ADMISSION: 06/05/2020 CHIEF COMPLAINT: Left leg pain. HISTORY OF PRESENT ILLNESS: This is a 69-year-old female well known to me from a previous right knee replacement done about 11 years ago. She has now been bothered by more and more left lower extremity pain and discomfort that has increased over the years. We have been treating conservatively with injections in both her hip and her knees. They provide temporary relief, but become less successful over time. She has become more debilitated by groin and thigh pain. She limps the more she walks. She has difficulty putting her shoes and socks on. She is also having knee pain. The shots help her temporarily. She also has a chronic history of back pain and had back surgery in the past. She is really debilitated by this leg pain. She would like to have that improved if possible. PAST MEDICAL HISTORY: 1. Hypertension. 2. Hypothyroidism. 3. Back pain. 4. Gastroesophageal reflux disease. 5. Hiatal hernia. 6. Obesity. 7. Breast cancer, in remission. PAST SURGICAL HISTORY: 1. Tubal ligation. 2. Right knee replacement done on 03/16/2009. 3. Tonsillectomy. 4. Breast cancer surgery. 5. Achilles tendon repair. 6. Throat stricture surgery. 7. Back surgery. ALLERGIES: BEE VENOM AND URETHANE. CURRENT MEDICINES: Include: 1. Lisinopril 20 mg a day. 2. Letrozole 2.5 mg a day. 3. Gabapentin. 4. Levothyroxine 50 mcg a day. 5. Omeprazole 20 mg a day. 6. Meloxicam 7.5 mg twice a day. 7. Zantac. SOCIAL HISTORY: A 69-year-old female. Lives in [place]. No significant smoking or alcohol intake history. FAMILY HISTORY: Noncontributory. REVIEW OF HISTORY: Negative for diabetes, neurologic problem, vascular problems or bleeding disorders. No chest pain or shortness of breath. No history of DVT or PE. Does have back pain. PHYSICAL EXAMINATION: GENERAL: Shows a pleasant, middle-aged female who looks to be in pretty good health. HEENT: Benign. NECK: Supple, no lymphadenopathy. LUNGS: Clear to auscultation. HEART: Has a regular rate and rhythm. ABDOMEN: Soft, nontender, nondistended. EXTREMITIES: Grossly neurovascularly intact except as follows: Examination of the left lower extremity reveals the patient walks with a bit of a limp. Her leg lengths clinically appear equal. Examination of the left hip reveals a very stiff hip. She has pain and reproduction of her hip pain with any type of hip motion. She can internally rotate to neutral at best. This recreates pain. Negative straight leg raise. She is neurologically intact. Examination of left knee reveals slight valgus alignment. Small knee effusion. She is tender over the lateral aspect of the knee. Range of motion about 5-120. No instability. X-RAYS: X-rays of the left hip reveal fairly concentric hip arthritis with a lot of osteophytes around the femoral head and acetabulum. She still has some joint space remaining, but significant osteophyte formation. X-rays of the left knee reveal advanced lateral compartment DJD. She has got complete loss of her lateral joint space. ASSESSMENT: A 69-year-old female with a history of right knee replacement in the past as well as back pain with multiple comorbidities including hypertension, hypothyroidism, gastroesophageal reflux disease, hiatal hernia with left leg pain unresponsive to conservative treatment. She has pretty advanced hip as well as knee arthritis. My sense is that the hip is causing more of her symptoms at this point than her knee. PLAN: We had a long discussion as far as treatment. We are going to proceed with left hip replacement. Hopefully, this will help her knee to some degree. It is very possible that she is going to need her knee replaced in the future. The risks and benefits of left total hip replacement were explained to the patient including but not limited to DVT, PE, , infection, neurological injury, vascular injury, bleeding problem, pain, limited range of motion, stiffness, failure to relieve her symptoms, incomplete relief of symptoms, fracture, leg length inequality, nerve palsy, and need for further surgery in the future. The patient understands and desires to proceed. Informed consent was obtained. She does not do well with tramadol and we will likely use Dilaudid for postoperative pain control. We talked about holding her lisinopril and Mobic before surgery.
[2020-06-05] MEDS ORDERED: ACETAMINOPHEN 500 MG TAB PO SCH (06:00)
[2020-06-05] MEDS ORDERED: LR 500ML BOLUS, THEN 15ML/HR IV SCH (06:00)
[2020-06-05] MEDS ORDERED: LR 60ML/HR IV SCH (06:00)
[2020-06-05] MEDS ORDERED: TRANEXAMIC ACID 1,000 MG **IV Intra-op IV SCH (06:00)
[2020-06-05] MEDS ORDERED: GABAPENTIN 300 MG CAP PO SCH (06:00)
[2020-06-05] MEDS ORDERED: BUPIVACAINE LIPOSOME/PF 266 MG, BUPIVACAINE/EPINEPHRINE 50 ML, SODIUM CHLORIDE 0.9% 30 ... INFIL SCH (06:00)
[2020-06-05] MEDS ORDERED: FAMOTIDINE 20 MG TAB PO SCH (06:00)
[2020-06-05] MEDS ORDERED: METOCLOPRAMIDE HCL 10 MG TABLET PO SCH (06:00)
[2020-06-05] MEDS ORDERED: CEFAZOLIN 2000MG 2,000 MG/15 ML SYR IV SCH (06:00)
[2020-06-05] MEDS ORDERED: MoRPHine SULFATE PF 1 MG/ML 10 ML AMP/VIAL ONE (06:22)
[2020-06-05] MEDS ORDERED: PROPOFOL IV EMULSION 10 MG/ML 20 ML VIAL IV ONE ×3 (06:22→07:18)
[2020-06-05] MEDS ORDERED: MIDAZOLAM HCL 1 MG/ML 2ML VIAL ONE (06:22)
[2020-06-05] MEDS ORDERED: fentaNYL citrate 100 MCG/2 ML VIAL ONE (06:22)
[2020-06-05] MEDS ORDERED: BUPIVACAINE 0.5 % 5 MG/1 ML PF 10ML VIAL ONE (06:29)
[2020-06-05] MEDS ORDERED: EPINEPHrine INJ 1 MG/ML AMP ONE (06:48)
[2020-06-05] MEDS ORDERED: BUPIVACAINE 0.5 % 5 MG/1 ML MPF 30ML VIAL ONE (06:48)
[2020-06-05] MEDS ORDERED: BACITRACIN INJ 50,000 UNIT VIAL ONE (06:48)
--- NOTE | 2020-06-05 06:49 | History & Physical Bridge Note ---
Date of Service June 05, 2020 History & Physical Bridge Note I have examined the patient, reviewed the History & Physical and in the interval since the performance of the History & Physical I have noted the following changes of clinical significance: no changes noted
[2020-06-05] MEDS ORDERED: NALOXONE HCL 0.4 MG/1 ML VIAL/CARP IV PRN ×2 (07:01→10:14)
[2020-06-05] MEDS ORDERED: NALOXONE HCL 0.08 MG in SYRINGE 1.8 ML IV PRN (07:01)
[2020-06-05] MEDS ORDERED: ONDANSETRON INJ 2 MG/ML 2 ML VIAL IV PRN ×2 (07:01→10:14)
[2020-06-05] MEDS ORDERED: NALOXONE HCL 1 MG in SODIUM CHLORIDE 0.9% 1000ML 1,000 ML IV PRN (07:01)
[2020-06-05] MEDS ORDERED: DiphenhydrAMINE HCL 50 MG/ML VIAL IV PRN (07:01)
[2020-06-05] MEDS ORDERED: MEPERIDINE HCL 25 MG/ML CARP/VIAL IV PRN (07:01)
[2020-06-05] MEDS ORDERED: KETOROLAC 30 MG/ML VIAL IV PRN (07:01)
[2020-06-05] MEDS ORDERED: ePHEDrine sulfate 50 MG/ML AMP IV PRN (07:01)
[2020-06-05] MEDS ORDERED: MoRPHine SULFATE PF 1 MG/ML 10 ML AMP/VIAL INT SPINAL ONE (07:01)
[2020-06-05] MEDS ORDERED: LACTATED RINGER'S 500 ML IV PRN (07:01)
[2020-06-05] MEDS ORDERED: DC INTRASPINAL MORPHINE SCH (07:15)
[2020-06-05] MEDS ORDERED: SODIUM CHLORIDE 0.9% 1000ML 1,000 ML IV SCH (07:15)
[2020-06-05] MEDS ORDERED: NO NARCOTICS OR SEDATIVES SCH (07:15)
[2020-06-05] MEDS ORDERED: PHENYLEPHRINE HCL 10 MG/ML VIAL ONE (07:37)
--- NOTE | 2020-06-05 08:25 | Post Operative Brief Note ---
PG Immediate Post Op with CF Date of Surgery June 05, 2020 Pre & Post Diagnosis Operation Date: 03/16/20 08:50 <No data on this case meets the specified criteria> Operation Date: 06/05/20 07:00 Pre-Op Diagnosis: Left Hip Advanced Degenerative Joint Disease Post-Op Diagnosis: Left Hip Advanced Degenerative Joint Disease I identified the patient and participated in the time-out.: Yes Procedure Operation Date: 03/16/20 08:50 <No data on this case meets the specified criteria> Operation Date: 06/05/20 07:00 Actual Procedures p Left Total Hip Arthroplasty--Uncemented(Left) - Charles Robles MD Surgeon Charles Robles MD Software Writer Mary, PAC Estimated Blood Loss 200 Findings Consistent with Post-Op Diagnosis Fluids 800 cc Specimens Specimen Description: A. Left Femoral Head Drains Balderas Catheter Anesthesia Type Spinal MAC Complications none Disposition Accompanied Patient To Recovery: Yes Disposition: Recovery Room
--- NOTE | 2020-06-05 08:39 | Operative Report ---
Post Operative Report Pre & Post Diagnosis Operation Date: 03/16/20 08:50 <No data on this case meets the specified criteria> Operation Date: 06/05/20 07:00 Pre-Op Diagnosis: Left Hip Advanced Degenerative Joint Disease Post-Op Diagnosis: Left Hip Advanced Degenerative Joint Disease I identified the patient and participated in the time-out.: Yes Procedure Operation Date: 03/16/20 08:50 <No data on this case meets the specified criteria> Operation Date: 06/05/20 07:00 Actual Procedures p Left Total Hip Arthroplasty--Uncemented(Left) - Charles Robles MD Surgeon Charles Robles MD Set Up Mechanic Automatic Line Mary, PAC Estimated Blood Loss 200 Findings Consistent with Post-Op Diagnosis Operative findings revealed advanced left hip DJD. She had a very oblong deformed femoral head with grade 4 [id number] disease. She had anterior acetabular osteophyte. Moderate sized joint effusion. Fluids 800 cc. Specimens Left femoral head sent for pathology. Drains None. Anesthesia Type Spinal MAC Complications none Disposition Accompanied Patient To Recovery: Yes Disposition: Recovery Room Indications Patient is a 69-year-old female is had a long history of orthopedic issues and joint pain and discomfort. She underwent a right knee replacement about 11 years ago is done pretty well with this. She continues to be bothered by left lower extremity pain in both her hip and her knee. This progressed over time her hip seems to be more bothersome than her knee. X-rays showed advanced hip arthritis in both joints. She elected proceed with total hip arthroplasty. She failed all conservative measures. Description of Procedure Operative implants consist of: 1. Biomet G7 size 52 mm acetabular shell. 2. 6.5 cancellus acetabular screws 1 of 35 mm in length and 1 of 30 mm length. 3. Highly cross-linked polyethylene liner with a 52 mm outer diameter and 36 mm inner diameter. 4. Sycamore eliminator. 5. Sarath Corail size 11 KLA femoral stem. 6. +5/36 mm ceramic articular ball. Patient was taken the operating room identified and placed on the operating table supine position protectors were properly padded. IV antibiotics were provided by anesthesia team. A spinal anesthetic had been implemented holding area. A Balderas catheter was placed in sterile fashion with the patient then placed in the right lateral decubitus position. An axillary roll was placed. A Stulberg hip positioner was used for positioning. The left hip and leg were then prepped and draped in usual sterile fashion. A posterior lateral posterior left hip was then performed to a curvilinear incision centered over the greater trochanter. Sharp dissection got through subcutaneous tissue down to level the IT band gluteal fascia the IT band gluteal fascia incised longitudinally in line with skin incision. The underlying greater truck bursa was excised. The piriformis and external rotators were tagged and taken off the posterior aspect of the hip joint capsule. Great care was taken throughout the procedure protect sciatic nerve at all times. A posterior capsulotomy was then performed with large flap for later repair. Hip was internally rotated and dislocated. Femoral neck osteotomy cut was made with Final Cut about 8 mm above the lesser trochanter. Femoral head was removed and sent for pathology P the femur was retracted anteriorly. Attention drawn the acetabulum. The acetabular labrum was excised. Was fairly ossified. The pulvinar fat was removed. Sequential reaming the acetabulum was then performed begin with size 47 progressing up to 51. I did reamed some with a 52 reamer. A 52 mm Biomet G7 acetabular shell was then placed in about 40 degrees lateral opening and 20 degrees of anteversion. It was fixed with two 6.5 cancellus acetabular screws. A small anterior osteophyte was removed. Trial liner was placed. Attention drawn the femur. The proximal femur was entered with a cookie-cutter followed by canal finder. I then broached begin the size 8 and progressing up to 11. We got good fit at 11. I did not think her proximal dimensions could fit a larger stem. Calcar reamer was used smooth and off the calcar. Then trialed the hip and the +5 articular ball provide full stability in full extension and external rotation and flexion to 90 degrees into rotation over 50 degrees. Leg lengths seemed appropriate. Soft tissue tension seemed appropriate. We elect to place these implants. All trial implants were removed. An apex hole eliminator was placed. Highly cross-linked polyethylene liner was placed. A Sarath KLA size 11 femoral stem was impacted in position. A +5/36 mm articular ball was placed. Hip was located once again found to be stable. Attention drawn toward closing. The wound was irrigated with pulsatile lavage solution. The posterior capsule and external rotators were repaired through drill holes in the posterior trochanter with #2 Tycron suture. The IT band gluteal fascia then closed with #1 PDS suture running fashion with subcutaneous tissues then closed with 2 layers the deep layer #2 Vicryl suture and the subcutaneous tissues with 2-0 Dexon suture in a buried interrupted fashion. Skin was closed skin kirti. Leg was then cleaned dried a sterile dressing both Xeroform, 4 x 4's, sterile ABD pad and foam tape was applied. Patient then transferred to the recovery room in stable condition. Patient tolerated procedure well no complications. I attest to the content of the Intraoperative Record and any orders documented therein. Any exceptions are noted below.
--- NOTE | 2020-06-05 08:50 | XRay Report ---
XR hip 1V LT w pelvis CLINICAL HISTORY: Postoperative evaluation. COMPARISON: Pelvis and hip radiographs November 27, 2017. FINDINGS: Alignment of the total left hip arthroplasty is anatomic. There is no periprosthetic fract ure or unexpected radiopaque foreign body. Acetabular screws are noted. There are skin kirti. IMPRESSION: Expected findings following total left hip arthroplasty. ACT 112: Negative or not required by law. Electronically signed by: Royce Newman M.D. 06/05/2020 8:49 AM
[2020-06-05] MEDS ORDERED: bisacodyL 10 MG SUPP PR PRN (10:14)
[2020-06-05] MEDS ORDERED: MAGNESIUM HYDROXIDE SUSP 30 ML UDC PO PRN (10:14)
[2020-06-05] MEDS ORDERED: METOCLOPRAMIDE HCL INJ 5 MG/ML 2 ML VIAL IV PRN (10:14)
[2020-06-05] MEDS ORDERED: ALUMINUM/MAGNESIUM SUSP 30 ML UDC PO PRN (10:14)
[2020-06-05] MEDS ORDERED: ASCORBIC ACID 500 MG TAB PO SCH (10:30)
[2020-06-05] MEDS ORDERED: GABAPENTIN 100 MG CAP PO SCH (10:30)
--- NOTE | 2020-06-05 10:45 | Anesthesiology Progress Note ---
Date of Service June 05, 2020 Anesthesia Post Procedure Vital Signs Vital Signs: Temp Pulse Pulse Resp BP Pulse Ox 06/05/20 09:50 67 18 145/87 H 100 06/05/20 09:40 97.3 F L 73 13 130/95 98 06/05/20 09:30 72 20 150/72 H 97 06/05/20 09:20 74 15 149/74 H 97 06/05/20 09:10 94.6 F L 75 15 147/92 H 100 06/05/20 09:00 72 16 154/78 H 100 06/05/20 08:50 75 15 123/80 97 06/05/20 08:40 70 15 134/66 98 06/05/20 08:30 72 19 129/79 98 06/05/20 08:23 97.3 F L 74 14 105/57 L 95 06/05/20 06:39 74 20 184/96 H 99 06/05/20 05:56 98.2 F 88 18 179/97 H 97 Pain Intensity Left Hip: Pain Intensity: 0 Transfer of Care Handoff Completed per policy Notes Mental Status: alert / awake / arousable and participated in evaluation Patient Amnestic to Procedure: Yes Nausea / Vomiting: adequately controlled Pain: adequately controlled Airway Patency, RR, SpO2: stable & adequate BP & HR: stable & adequate Hydration State: stable & adequate Neuraxial Anesthesia: was administered and sensory block is resolving Anesthetic Complications: no major complications apparent and Pt Satisfied with anesthetic care
[2020-06-05] MEDS: DOCUSATE SODIUM 100 MG CAP PO SCH ×2 (11:00→20:12)
[2020-06-05] MEDS: ASPIRIN 81 MG ECTAB PO SCH ×2 (11:00→20:12)
[2020-06-05] MEDS: LEVOTHYROXINE SODIUM 50 MCG TABLET PO SCH (11:00)
[2020-06-05] MEDS: MULTIVITAMIN TAB PO SCH (11:00)
[2020-06-05] MEDS: CHOLECALCIFEROL 1,000 UNITS 25 MCG TAB PO SCH (11:00)
[2020-06-05] MEDS: SODIUM CHLORIDE 0.9% 1000ML 1,000 ML IV SCH ×2 (12:12→21:14)
[2020-06-05] MEDS: KETOROLAC TROMETHAMINE 15 MG/ML VIAL IV SCH ×3 (12:16→23:46)
[2020-06-05] MEDS: LETROZOLE 2.5 MG TAB PO SCH (12:16)
[2020-06-05] MEDS ORDERED: HYDROmorphone HCL 2 MG TAB PO PRN (12:44)
[2020-06-05] MEDS: ACETAMINOPHEN 500 MG TAB PO SCH ×2 (14:25→21:14)
[2020-06-05] MEDS ORDERED: TRANEXAMIC ACID / 0.7% NACL 1,000 MG/100 ML BAG IV SCH (14:30)
[2020-06-05] MEDS: CEFAZOLIN 2000MG 2,000 MG/15 ML SYR IV SCH ×2 (15:24→22:24)
--- NOTE | 2020-06-05 16:57 | Progress Notes ---
DATE: 06/05/2020 SUBJECTIVE: A 69-year-old white female postop from left hip replacement. She is doing well. Feels just kind of groggy. No chest pain or shortness of breath. Not having any hip pain yet. OBJECTIVE: VITAL SIGNS: Temperature 36.3. Vital signs stable. GENERAL: Shows a pleasant elderly female. I had to wake her when I went into her room this afternoon. LUNGS: Clear to auscultation. HEART: Has a regular rate and rhythm. ABDOMEN: Soft, nontender, nondistended. EXTREMITIES: Grossly neurovascularly intact except as follows: Examination of the left lower extremity reveals the leg to be well aligned. Dressing is clean, dry and intact. Thigh is soft and supple. Hip is located. She is neurologically intact. X-RAYS: X-rays of the left hip from recovery room are reviewed. It shows a left uncemented total hip arthroplasty. Components looked to be in good position. No signs of problems. ASSESSMENT: A 69-year-old white female postoperative from left hip replacement, doing well. Hip is located. She is neurologically intact. Pain is controlled. PLAN: 1. DVT prophylaxis including thigh-high TEDs, SCDs, and aspirin twice a day. 2. PT/OT. Weight bear as tolerated. Left total hip protocol. 3. Pain control, doing well with current pain regimen. 4. IV antibiotics x24 hours. 5. Disposition: Plan to discharge to home with likely some home health once adequately recovered and medically stable.
[2020-06-05] MEDS: FERROUS GLUCONATE 324 MG TAB PO SCH (17:37)
[2020-06-05] MEDS: ASCORBIC ACID 500 MG TAB PO SCH (18:27)
[2020-06-05] MEDS: lisinopriL 20 MG TAB PO SCH (20:12)
[2020-06-05] MEDS: SENNA 8.6 MG TAB PO SCH (20:12)
[2020-06-05] MEDS: PANTOprazole 40 MG TAB PO SCH (20:12)
[2020-06-05] MEDS ORDERED: ZINC OXIDE PO SCH (21:00)
[2020-06-05] MEDS ORDERED: MAGNESIUM OXIDE PO SCH (21:00)
[2020-06-05] MEDS ORDERED: [UNRECOGNIZED DRUG - OTHER] PO SCH (21:00)
[2020-06-05] MEDS ORDERED: CALCIUM CARBONATE PO SCH (21:00)
[2020-06-05] MEDS ORDERED: CHOLECALCIFEROL PO SCH (21:00)
[2020-06-06] MEDS ORDERED: HYDROmorphone INJ 0.5 MG/0.5 ML SYR IV PRN (01:01)
[2020-06-06] MEDS: LEVOTHYROXINE SODIUM 50 MCG TABLET PO SCH (05:28)
[2020-06-06] MEDS: KETOROLAC TROMETHAMINE 15 MG/ML VIAL IV SCH ×4 (05:28→23:40)
[2020-06-06] MEDS: ACETAMINOPHEN 500 MG TAB PO SCH ×3 (05:28→21:30)
[2020-06-06 05:56] LABS: Basophils # (auto) 0.01 K/uL (0-0.2); Basophils % (auto) 0.1 %; Eosinophils # (auto) 0.13 K/uL (0-0.5); Eosinophils % (auto) 1.2 %; Hematocrit (blood only) 37.2 % (37-47); Hemoglobin 12.4 g/dL (12.0-16.0); Immature Granulocytes # (auto) 0.02 K/uL (0.00-0.02); Immature Granulocytes % (auto) 0.2 %; Lymphocytes # (auto) 1.46 K/uL (1.2-3.4); Lymphocytes % (auto) 13.5 %; Mean Corpuscular Hemoglobin 30.4 pg (25-34); Mean Corpuscular Hgb Conc 33.3 g/dL (32-36); Mean Corpuscular Volume 91.2 fL (80-100); Mean Platelet Volume 9.7 fL (7.4-10.4); Monocytes # (auto) 1.17 K/uL (0.11-0.59); Monocytes % (auto) 10.9 %; Neutrophils # (auto) 7.99 K/uL (1.4-6.5); Neutrophils % (auto) 74.1 %; Platelet Count 185 K/uL (130-400); RDW Coefficient of Variation 14.2 % (11.5-14.5); RDW Standard Deviation 47.3 fL (36.4-46.3); Red Blood Count 4.08 M/uL (4.2-5.4); White Blood Count 10.78 K/uL (4.8-10.8)
[2020-06-06 06:32] LABS: BUN Creatinine Ratio 13.3 (10-20); Calcium 8.5 mg/dl (8.5-10.1); Creatinine Clr Calc Pharmacy 97.3 ml/min; Est GFR (African American) 107.6; Est GFR (Non-African American) 92.9; Potassium 3.5 mmol/L (3.5-5.1)
--- NOTE | 2020-06-06 07:44 | Progress Notes ---
DATE: 06/06/2020 SUBJECTIVE: A 69-year-old white female postop day 1 from a left hip replacement. She is doing pretty well. Pain is controlled. She got up and walked some last evening. No chest pain or shortness of breath. Not feeling dizzy or lightheaded. OBJECTIVE: VITAL SIGNS: Temperature is 36.6. Vital signs stable. GENERAL: Shows a pleasant, middle-aged female. She is lying in bed and looks comfortable. EXTREMITIES: Examination of the left hip reveals the leg lengths to be equal. Dressing is clean, dry and intact. Thigh is soft and supple. She is neurologically intact. LABORATORY DATA: Hemoglobin 12.4. Hematocrit 37.2. Electrolytes are stable. ASSESSMENT: A 69-year-old while female postop day 1 from a left hip replacement, doing pretty well. Pain is controlled. Hip is located. She is neurologically intact. PLAN: 1. DVT prophylaxis including thigh-high TEDs, SCDs, and aspirin twice a day. 2. PT/OT. Weight bear as tolerated. Left total hip protocol. 3. Pain control, doing well with current pain regimen. 4. Disposition: She is hoping to be discharged to home. She is really not interested in home health due to her 's level of medical issues. We will see how therapy goes today.
--- NOTE | 2020-06-06 07:59 | Anesthesiology Progress Note ---
Date of Service June 06, 2020 Anesthesia Post Procedure Vital Signs Vital Signs: Temp Pulse Pulse Resp BP Pulse Ox Pulse Ox 06/06/20 07:34 36.8 C 75 18 154/85 H 95 06/06/20 03:46 36.6 C 75 16 122/78 94 06/06/20 00:03 18 95 06/05/20 23:40 36.6 C 77 16 134/81 94 06/05/20 23:10 16 94 06/05/20 22:15 14 94 06/05/20 20:10 36.6 C 75 18 163/87 H 98 06/05/20 19:07 14 92 06/05/20 18:25 18 98 06/05/20 17:15 18 72 L 06/05/20 16:15 14 99 06/05/20 15:15 36.3 C L 67 18 145/88 H 98 06/05/20 14:22 36.4 C L 65 12 114/77 97 06/05/20 13:14 36.4 C L 72 16 155/76 H 94 06/05/20 12:56 16 133/81 94 06/05/20 12:08 36.3 C L 64 20 97/62 L 98 06/05/20 11:15 16 92 06/05/20 11:14 67 16 124/77 06/05/20 10:49 36.4 C L 65 16 143/83 H 98 06/05/20 10:15 36.4 C L 67 16 158/93 H 97 97 06/05/20 09:50 67 18 145/87 H 100 06/05/20 09:40 36.3 C L 73 13 130/95 98 06/05/20 09:30 72 20 150/72 H 97 06/05/20 09:20 74 15 149/74 H 97 06/05/20 09:10 34.8 C L 75 15 147/92 H 100 06/05/20 09:00 72 16 154/78 H 100 06/05/20 08:50 75 15 123/80 97 06/05/20 08:40 70 15 134/66 98 06/05/20 08:30 72 19 129/79 98 06/05/20 08:23 36.3 C L 74 14 105/57 L 95 Pain Intensity Left Hip: Pain Intensity: 0 Notes Mental Status: alert / awake / arousable and participated in evaluation Patient Amnestic to Procedure: Yes Nausea / Vomiting: adequately controlled Pain: adequately controlled Airway Patency, RR, SpO2: stable & adequate BP & HR: stable & adequate Hydration State: stable & adequate Neuraxial Anesthesia: was administered and sensory block resolved Anesthetic Complications: no major complications apparent and Pt Satisfied with anesthetic care
[2020-06-06] MEDS: CHOLECALCIFEROL 1,000 UNITS 25 MCG TAB PO SCH (08:59)
[2020-06-06] MEDS: FERROUS GLUCONATE 324 MG TAB PO SCH ×2 (08:59→17:29)
[2020-06-06] MEDS: ASCORBIC ACID 500 MG TAB PO SCH ×2 (08:59→17:29)
[2020-06-06] MEDS: GABAPENTIN 100 MG CAP PO SCH ×4 (08:59→21:30)
[2020-06-06] MEDS: ASPIRIN 81 MG ECTAB PO SCH ×2 (08:59→21:29)
[2020-06-06] MEDS: DOCUSATE SODIUM 100 MG CAP PO SCH ×2 (09:00→21:29)
[2020-06-06] MEDS: MULTIVITAMIN TAB PO SCH (09:00)
[2020-06-06] MEDS: LETROZOLE 2.5 MG TAB PO SCH (12:13)
[2020-06-06] MEDS: SENNA 8.6 MG TAB PO SCH (21:29)
[2020-06-06] MEDS: PANTOprazole 40 MG TAB PO SCH (21:29)
[2020-06-06] MEDS: lisinopriL 20 MG TAB PO SCH (21:29)
[2020-06-07] MEDS: ACETAMINOPHEN 500 MG TAB PO SCH (05:59)
[2020-06-07] MEDS: KETOROLAC TROMETHAMINE 15 MG/ML VIAL IV SCH (05:59)
[2020-06-07] MEDS: LEVOTHYROXINE SODIUM 50 MCG TABLET PO SCH (06:00)
[2020-06-07 06:43] VITALS: BP 141/81; PULSE 78; TEMP 98.1; O2SAT 96
[2020-06-07] MEDS: ASCORBIC ACID 500 MG TAB PO SCH (08:24)
[2020-06-07] MEDS: FERROUS GLUCONATE 324 MG TAB PO SCH (08:24)
[2020-06-07] MEDS: CHOLECALCIFEROL 1,000 UNITS 25 MCG TAB PO SCH (08:25)
[2020-06-07] MEDS: ASPIRIN 81 MG ECTAB PO SCH (08:25)
[2020-06-07] MEDS: MULTIVITAMIN TAB PO SCH (08:25)
[2020-06-07] MEDS: DOCUSATE SODIUM 100 MG CAP PO SCH (08:25)
[2020-06-07] MEDS: GABAPENTIN 100 MG CAP PO SCH (08:25)
[2020-06-07] MEDS: LETROZOLE 2.5 MG TAB PO SCH (12:08)
--- NOTE | 2020-06-07 12:12 | Progress Notes ---
DATE: 06/07/2020 SUBJECTIVE: A 69-year-old white female now postop day 2 from a left hip replacement. She is doing pretty well. Pain has been pretty well controlled. She has really been afraid to take much pain medicine. No chest pain or shortness of breath. Not feeling dizzy or lightheaded. OBJECTIVE: VITAL SIGNS: Temperature 36.7. Vital signs stable. GENERAL: Shows a pleasant elderly female. She was in the bathroom washing up when I visited her this morning. EXTREMITIES: Examination of the left hip reveals the dressing to be clean, dry and intact. Leg lengths are equal. Hip is located. Thigh is soft and supple. She is neurologically intact. ASSESSMENT: A 69-year-old white female postoperative day 2 from left hip replacement, doing pretty well. Pain has been reasonably well controlled. She has been afraid to take pain medicines. PLAN: 1. DVT prophylaxis including thigh-high TEDs, SCDs, and aspirin twice a day. 2. PT/OT. She can weightbear as tolerated. Left total hip protocol. 3. Pain control, doing okay with current pain regimen. We are going to change her from Dilaudid to oxycodone at her request. We will change this at the pharmacy upon discharge. 4. Disposition: Plan to discharge to home with some home health later today.
--- NOTE | 2020-06-12 06:36 | Discharge Summary ---
Date of Service June 12, 2020 Admission HPI Per Admitting Provider well documented in the h & p Admission Exam (Per Admitting) Constitutional well documented in the h & p Discharge Data Consultations 06/06/20 08:00 Consult Case Management - Discharge Planning Routine Procedures Performed Operation Date: 03/16/20 08:50 <No data on this case meets the specified criteria> Operation Date: 06/05/20 07:00 Actual Procedures p Left Total Hip Arthroplasty--Uncemented(Left) - Charles Robles MD Hospital Course (1) Status post total hip replacement, left: This patient is a 69 y/o female admitted on 06/05/20 and underwent left total hip replacement. She tolerated the procedure well and there were no complications. Transferred to the PACU post op and later to the orthopedic floor for further care. She was given ancef for antibiotic prophylaxis. She was also given COMPA stockings, SCDs, and aspirin for DVT prophylaxis. Hemoglobin, hematocrit, and vital signs were monitored during her hospital stay and remained stable. Did not require any blood transfusions. There were no complications during her hospital stay. By post op day #2 the patient was tolerating a regular diet, pain was reasonably controlled with oral pain medicine, and she was participating in physical therapy. On post op day #2 the patient was discharged home and set up with home health care. She was given printed discharge instructions including prescriptions for extra strength tylenol, aspirin, and dilaudid. Continue physical therapy, weight bearing as tolerated. Continue total hip precautions. Continue COMPA stockings. Follow up approximately 2 weeks post op or sooner if there are problems or concerns. Coding Level of Care Code None Diagnoses Status post total hip replacement, left Z96.642
== END 2020-06-07 13:01 | disposition home health service (06) | DRG 470 ==
LOC: ASU 05:19 → 3E 05:19

== ENCOUNTER 2021-04-09 10:02 | Observation (INO) ==
--- NOTE | 2021-03-07 14:29 | Anesthesiology Consultation ---
Date of Service March 07, 2021 Assessment & Plan (1) Encounter for pre-operative examination: - COVID screening: Per assessment on 02/25: Travel screen negative, no known COVID-19 positive contacts or current COVID-19 related symptoms. Surgeon arranged preop COVID testing (done 03/06; OR)- results pending. - S/P Left SUKUMAR (06/05/20): SAB at L4-L5 (x1 attempt) at [facility] Chart Review Chart Review: Acceptable Risk for Surgery and Patient NOT seen in Pre Admission Testing History Surgery Operation Date: 03/12/21 07:00 Proposed Procedures p Left Total Knee Arthroplasty - Charles Robles MD Height/Weight Height: 5 ft 5 in Weight: 88.451 kg Allergies Allergy/AdvReac Type Severity Reaction Status Date / Time bee venom protein (honey bee) Allergy Severe Anaphylaxis Verified 03/07/21 14:22 adhesive Allergy Intermediate Rash Verified 03/07/21 14:22 nickel Allergy Skin Verified 03/07/21 14:22 redness shellfish derived AdvReac Mild N/V Verified 03/05/21 07:56 urathane Allergy Severe Blistering Uncoded 03/07/21 14:22 (neoprene) Medications Home Medications Medication Instructions Recorded Confirmed Last Taken gabapentin 100 mg capsule 100 mg PO QID #360 cap 11/24/19 03/05/21 06/05/20 04:00 3-in-1 Commode #1 ea 12/15/19 03/05/21 Unknown ascorbic acid (vitamin C) [Vitamin 500 mg PO BID 02/13/20 03/05/21 06/04/20 10:00 C] cholecalciferol (vitamin D3) 1,000 unit PO QAM 02/13/20 03/05/21 06/04/20 10:00 [Vitamin D3] letrozole 2.5 mg PO QDL 02/13/20 03/05/21 06/04/20 12:00 Flaco Mag Zinc Plus D3 1 tab PO QPM 05/02/20 03/05/21 06/04/20 10:00 omeprazole 20 mg capsule,delayed 20 mg PO QPM #90 cap 07/30/20 03/05/21 Unknown release levothyroxine 50 mcg tablet 50 mcg PO QAM #90 tab 10/22/20 03/05/21 Unknown lisinopril 20 mg tablet 20 mg PO QPM #90 tab 10/22/20 03/05/21 Unknown meloxicam 7.5 mg tablet 7.5 mg PO BID #180 tab 10/22/20 03/05/21 Unknown amino acids [Amino Acid] 1 cap PO QAM 02/25/21 03/05/21 Unknown tramadol 50 mg tablet 50 mg PO .COMPLEX PRN #20 tab 03/05/21 03/05/21 Unknown Past Medical History Medical History Breast cancer 2017 s/p right lumpectomy with LND + radiation Chronic back pain Chronic reflux esophagitis Occasional Elevated cholesterol Generalized joint pain History of esophageal stricture s/p dilation/surgical incision Hypothyroidism Kidney cysts B/L Limb alert care status Right side Temporomandibular joint disorder No locking x years Varicose vein of leg Past Family History Family History Family/Other Breast cancer niece Aunt Breast cancer Father Myocardial infarction Mother Stroke Brother Heart disease Denies family history of Ovarian cancer Prostate cancer Colorectal cancer Past Surgical History Surgical History Awareness under anesthesia Awareness History of Achilles tendon repair right History of adenoidectomy History of arthroscopy of both knees History of colonoscopy History of laminectomy L4-L5 History of lumpectomy Right with lymph nodes removed History of tonsillectomy History of tooth extraction wisdom teeth History of total right knee replacement History of tubal ligation Status post total hip replacement, left Social History Smoking Status: Former smoker tobacco type: cigarettes Do You Dip or Chew Tobacco: No Smoking End Date: 20 years ago Hx Alcohol Use: No Hx Substance Use: No substance use type: does not use Lab Results Anesthesia Preop Results Results Anesthesia Widget: WBC 5.14 K/uL (4.8-10.8) 03/07/21 Hgb 13.5 g/dL (12.0-16.0) 03/07/21 Hct 40.0 % (37-47) 03/07/21 Plt 203 K/uL (130-400) 03/07/21 Na 139 mmol/L (136-145) 02/14/21 K 3.9 mmol/L (3.5-5.1) 02/14/21 Cl 108 mmol/L (98-107) H 02/14/21 CO2 25 mmol/L (21-32) 02/14/21 BUN 13 mg/dl (7-18) 02/14/21 Creat 0.75 mg/dl (0.6-1.2) 02/14/21 Glucose Level 94 mg/dl (70-99) 02/14/21 PT 10.3 Seconds (9.0-12.0) 02/14/21 INR 1.0 (0.9-1.1) 02/14/21 TSH 1.840 uIu/ml (0.300-4.500) 02/14/21 Blood Type AB Negative 03/07/21 Antibody Screen NEGATIVE 03/07/21 Testing Laboratory Results Blood Type AB Negative 02/14/21 10:11 Antibody Screen NEGATIVE 02/14/21 10:11 Electrocardiogram Date: 05/10/20 Findings: + NSR @ (72) Other Testing Chest CT (05/18/20): The substernal nodule on the prior exam appears to relate to a benign focus of atelectasis/parenchymal scarring. CT of chest is otherwise negative. Post therapy changes to the right breast.
--- NOTE | 2021-04-06 10:18 | History and Physical Report ---
DATE OF ADMISSION: 04/09/2021 CHIEF COMPLAINT: Left knee pain. HISTORY OF PRESENT ILLNESS: The patient is a 70-year-old female well known to me from previous joint replacements including a right knee replacement in 2008 and left hip replacement done last year. She is now being limited by her left knee pain. She has got a long history of left knee pain and discomfort that has gradually gotten worse over the past 15 years. It has become more debilitating. It limits her activities. She has got chronic pain, increased with weightbearing. She has failed conservative treatment and would like to have her left knee replaced. The patient has been scheduled for the surgery a couple times, but canceled due to COVID. She continues to want to have her knee fixed. PAST MEDICAL HISTORY: Significant for, 1. Hypertension. 2. Hypothyroidism. 3. Low back pain/sciatica. 4. Gastroesophageal reflux disease. 5. Hiatal hernia. 6. Obesity with a BMI of 33. 7. Breast cancer. PAST SURGICAL HISTORY: Includes, 1. Tonsillectomy. 2. Throat stricture surgery. 3. Right total knee replacement done on 03/16/2009. 4. Left hip replacement done on 06/05/2020. 5. Tubal ligation. 6. Achilles repair. 7. Back surgery. ALLERGIES: SHELLFISH, ADHESIVES AND BEE STINGS. CURRENT MEDICINES: Include, 1. Lisinopril 20 mg. 2. Levothyroxine 0.05 mg a day. 3. Meloxicam 7.5 mg twice a day. 4. Omeprazole 20 mg. 5. Hydrochlorothiazide once a day. 6. Gabapentin 100 mg 3-4 times a day. SOCIAL HISTORY: A 70-year-old female. She lives in [place]. Quit smoking. No alcohol intake. FAMILY HISTORY: Noncontributory. REVIEW OF SYSTEMS: Negative for diabetes, neurologic problem, vascular problem, bleeding disorders. No chest pain or shortness of breath. No history of DVT or PE. PHYSICAL EXAMINATION: GENERAL: Shows a pleasant, middle-aged female, looks to be in pretty good health. HEENT: Benign. NECK: Supple, no lymphadenopathy. LUNGS: Clear to auscultation. HEART: Has a regular rate and rhythm. ABDOMEN: Soft, nontender, nondistended. EXTREMITIES: Grossly neurovascularly intact. Examination of the left knee reveals the patient walks with a slight bit of a limp. She has got valgus alignment to her knee, which is increased with weightbearing. Small knee effusion. Range of motion about 5 degrees short of full extension to 115 degrees of flexion. There is no instability. Examination of the right knee reveals a well-healed incision. Anatomic alignment. No knee swelling. Range of motion 0-125. X-RAYS: X-rays of the left knee are reviewed. It shows advanced left knee lateral compartment DJD. She has complete loss of her lateral joint space. She has subchondral sclerosis. She has got osteophytes primarily in the lateral compartment. The right knee replacement looks to be in good position. ASSESSMENT: A 70-year-old white female with a history of right knee replacement as well as left hip replacement in the past with advanced left knee degenerative joint disease. She has failed conservative treatment and would like to have her left knee replaced. She has actually scheduled surgery a couple times, but canceled and would now like to proceed. PLAN: We are going to proceed with left knee replacement. The risks and benefits of this procedure were explained to the patient including but not limited to DVT, PE, , infection, neurological injury, vascular injury, bleeding problem, pain, limited range of motion, stiffness, failure to relieve her symptoms, incomplete relief of symptoms, need for further surgery in the future, fracture, leg length inequality, nerve palsy, persistent pain, incomplete relief of symptoms, etc. The patient understands and desires to proceed. Informed consent was obtained. The patient has multiple other medical comorbidities including hypertension, hypothyroidism, sciatica, gastroesophageal reflux disease, hiatal hernia, moderate obesity, which certainly increase her risk and she is fully aware of these issues. As far as discharge plans, she is planning to be discharged to home using [facility] home health program.
[~2021-04-09 10:02] MED LIST changes: +ACETAMINOPHEN 500 MG TAB PO SCH; +BUPIVACAINE 0.25% 30 ML VIAL ONE; +BUPIVACAINE 0.5 % 5 MG/1 ML PF 10ML VIAL ONE; +BUPIVACAINE LIPOSOME/PF 266 MG, BUPIVACAINE/EPINEPHRINE 50 ML, SODIUM CHLORIDE 0.9% 30 ... INFIL SCH; +FAMOTIDINE 20 MG TAB PO SCH; -FMR25 PO; -GABA-112 PO; +GABAPENTIN 300 MG CAP PO SCH; -LEVO50TA6 PO; -LISI10TA PO; +LR 500ML BOLUS, THEN 15ML/HR IV SCH; +LR 60ML/HR IV SCH; -MELO7.5T5 PO; +METOCLOPRAMIDE HCL 10 MG TABLET PO SCH; -PRLSR20 PO; +TRANEXAMIC ACID 1,000 MG **IV Intra-op IV SCH; +ceFAZolin 2000MG 2,000 MG/15 ML SYR IV SCH
--- NOTE | 2021-04-09 10:56 | History & Physical Bridge Note ---
Date of Service April 09, 2021 History & Physical Bridge Note I have examined the patient, reviewed the History & Physical and in the interval since the performance of the History & Physical I have noted the following changes of clinical significance: no changes noted
[2021-04-09] MEDS ORDERED: fentaNYL citrate 100 MCG/2 ML VIAL ONE (11:25)
[2021-04-09] MEDS ORDERED: MIDAZOLAM HCL 1 MG/ML 2ML VIAL ONE (11:25)
[2021-04-09] MEDS ORDERED: fentaNYL citrate 100 MCG/2 ML VIAL IV PRN (12:19)
[2021-04-09] MEDS ORDERED: ePHEDrine sulfate 50 MG/ML AMP IV PRN (12:19)
[2021-04-09] MEDS ORDERED: ATROPINE SULFATE 0.1 MG/ML 10ML SYR IV PRN (12:19)
[2021-04-09] MEDS ORDERED: ONDANSETRON INJ 2 MG/ML 2 ML VIAL IV PRN ×2 (12:19→16:29)
[2021-04-09] MEDS ORDERED: BUPIVACAINE LIPOSOME 1.3% 266 MG/20 ML VIAL ONE (12:22)
[2021-04-09] MEDS ORDERED: SODIUM CHLORIDE 0.9% PF 50 ML VIAL ONE (12:22)
[2021-04-09] MEDS ORDERED: EPINEPHrine INJ 1 MG/ML AMP ONE (12:23)
[2021-04-09] MEDS ORDERED: BUPIVACAINE 0.25% 30 ML VIAL ONE (12:23)
[2021-04-09] MEDS ORDERED: PROPOFOL IV EMULSION 10 MG/ML 20 ML VIAL IV ONE ×4 (12:24→13:28)
[2021-04-09] MEDS ORDERED: ROPIVACAINE 0.5% 5 MG/ML 30 ML VIAL ONE ×2 (12:31)
[2021-04-09] MEDS ORDERED: PHENYLEPHRINE 100MCG/ML 5ML SYR ONE (13:28)
--- NOTE | 2021-04-09 14:51 | Post Operative Brief Note ---
PG Immediate Post Op with CF Date of Surgery April 09, 2021 Pre & Post Diagnosis Operation Date: 04/09/21 12:30 Pre-Op Diagnosis: DJD Knee Left, Left Knee Pain Post-Op Diagnosis: DJD Knee Left, Left Knee Pain I identified the patient and participated in the time-out.: Yes Procedure Operation Date: 04/09/21 12:30 Actual Procedures p Left Total Knee Arthroplasty(Left) - Charles Robles MD Surgeon Charles Robles MD Freelance Art Director CHRISTOPHER Hernandez Estimated Blood Loss 50 Findings Consistent with Post-Op Diagnosis Fluids 1000 cc Specimens Specimen Description: A. Left knee bone and tissue Drains Balderas Catheter Anesthesia Type Spinal MAC Complications none Disposition Accompanied Patient To Recovery: No Disposition: Recovery Room
--- NOTE | 2021-04-09 15:07 | Anesthesiology Progress Note ---
Date of Service April 09, 2021 Anesthesia Post Procedure Vital Signs Vital Signs: Temp Pulse Pulse Resp BP Pulse Ox 04/09/21 15:00 83 14 120/69 95 04/09/21 14:51 36.7 C 86 14 115/63 96 04/09/21 10:52 36.6 C 98 H 18 170/78 H 98 Transfer of Care Handoff Completed per policy Notes Mental Status: alert / awake / arousable and participated in evaluation Patient Amnestic to Procedure: Yes Nausea / Vomiting: adequately controlled Pain: adequately controlled Airway Patency, RR, SpO2: stable & adequate BP & HR: stable & adequate Hydration State: stable & adequate Neuraxial Anesthesia: was administered and sensory block is resolving Anesthetic Complications: no major complications apparent and Pt Satisfied with anesthetic care
--- NOTE | 2021-04-09 15:08 | XRay Report ---
LEFT KNEE 2 VIEWS History: Left total knee arthroplasty. Degenerative arthritis. Postop. COMPARISON: Left knee 01/29/2016. FINDINGS: The patient is status post a left total knee arthroplasty. The hardware is intact. No fract ure or dislocation. Skin kirti are in place. Stable 2 cm sclerotic focus within the anterior distal left femur. IMPRESSION: Left total knee arthroplasty. No evidence for hardware complication. ACT 112: Negative or not required by law. Electronically signed by: Taj Dow M.D. 04/09/2021 3:07 PM
--- NOTE | 2021-04-09 15:32 | Operative Report ---
Post Operative Report Pre & Post Diagnosis Operation Date: 04/09/21 12:30 Pre-Op Diagnosis: DJD Knee Left, Left Knee Pain Post-Op Diagnosis: DJD Knee Left, Left Knee Pain I identified the patient and participated in the time-out.: Yes Procedure Operation Date: 04/09/21 12:30 Actual Procedures p Left Total Knee Arthroplasty(Left) - Charles Robles MD Surgeon Charles Robles MD Front Edger CHRISTOPHER Hernandez Estimated Blood Loss 50 Findings Consistent with Post-Op Diagnosis Operative findings revealed advanced left knee DJD. She had grade 4 [id number] disease of the lateral compartment with extensive osteophyte formation laterally. Some focal grade 4 changes medially and some fairly mild grade 2-3 changes in the patellofemoral joint. Moderate-sized joint effusion. Fluids 1000 cc Specimens Left knee sent for pathology. Anesthesia Type Spinal MAC Complications none Disposition Accompanied Patient To Recovery: No Disposition: Recovery Room Indications Patient is 70-year-old female has had a host of orthopedic issues and multiple joint replacements in the past. Over the years she developed increased pain discomfort left knee. She has been through extensive conservative treatment which became less successful over time. X-ray showed advanced lateral compartment DJD. She elected proceed with surgical treatment. This patient does have an apparent nickel allergy and therefore we elected to use a [employer] Nephew journey 2 zirconium knee replacement. Description of Procedure Operative implants consisted of: 1. Schneider [employer] Nephew journey 2 size 6 left posterior stabilized femoral component. 2. [employer] Nephew journey 2 size 4 tibial tray. 3. 10 mm posterior stabilized polyethylene insert. 4. 32 x 9 all polypatella. Patient taken to the operating identified, placed on the operating table supine position but all contractors were properly padded. IV antibiotics were provided by anesthesia team. A spinal anesthetic and abductor canal block had provided in the holding area. A Balderas catheter was placed in sterile fashion. A left thigh turn was then placed in the left lower extremities and prepped and draped in usual sterile fashion. The left leg was elevated exsanguinated use of an Esmarch and turns placed at 300 mmHg. An anterior approach left knee was then performed through longitudinal incision centered over the patella. Sharp dissection got through subcutaneous this down the extensor mechanism. A medial parapatellar arthrotomy incision was made. Some subperiosteal dissection was carried out medially. The fat pad was resected from root the patella tendon. Lateral patellofemoral ligament was released. Patella subluxated laterally and the knee was flexed. The osteophyte taken off distal femur P the ACL and PCL were then released from distal femur and the tibia subluxated anteriorly. The external tibial alignment jig was then placed in the interface the tibia and adjusted 8 mm medially. Proximal tibial cut was made remove about 4 to 5 mm of bone from the medial side. Tibia was then sized to a size 4. Attention drawn the femur. The distal femur exam with a sharp drop with intramedullary canal was suction. A left 5 degree valgus cutting guide was placed. Distal femoral cutting block was pinned in place. Distal femoral cutting block was adjusted take an additional 4 mm of bone off distal femur due to her slight flexion contracture. The knee was then brought out in extension I did do some pie crusting of the IT band in order to equalize the extension gap. The femur was then sized to a size 6. We did downsize this slightly. The AP cutting block was pinned parallel to the epicondylar axis which was 6 degrees of external rotation. The anterior cut, anterior cord, anterior chamfer, posterior cut, posterior chamfer cuts were made. The knee was flexed. The remnants of the medial lateral menisci were excised. The osteophytes taken off the posterior aspect the femur. The trial femoral component was placed. The notch cutting guide device was placed in the notch was created. The trochlear component was placed. The tibia was then subluxated anteriorly. The size 4 tibial tray was pinned in place and the drill and stem punch were used to create defect in proximal tibia for the tibial tray. The knee was then trialed and 10 mm insert fit most appropriately. Attention drawn the patella. Patella was cleaned of all soft tissues. Patella thickness measured 23 mm in thickness was cut down to 13. Was sized to a size 32 patella. The lug holes were drilled for 32 patella. The lateral osteophyte is moved. Patella button was placed. Knee was taken through range of motion patella tracked nicely with no thumbs test. Attention turned to placing the permanent components. Nupathe all trial components were removed. Bone plug was placed in the distal femur limit blood loss. A double batch Palacos G cement was mixed. Schneider [employer] Nephew size 6 posterior stabilized femoral component, size 4 tibial tray, 10 mm posterior stabilized polyethylene insert, and a 32 x 9 all polypatella then cemented in place. Knee was brought out in full extension total cement hardened. Final cement check was then performed. Pericapsular tissues were injected total 100 cc of combination of 20 cc of Exparel, 30 cc normal saline, 50 cc of quarter percent Marcaine with epinephrine. Patient did receive 1 g tranexamic acid. The tourniquet was then let down for turn time 67 minutes. Hemostasis assured use electrocautery. Extensor mechanism closed with combination 1 PDS suture #1 Vicryl suture in [id number] fashion. Extensor mechanism checked found to be intact with subcutaneous tissue then closed with 2 Dexon suture in a buried knot fashion skin was closed skin kirti. Leg was then cleaned dried a sterile dressing both Xeroform, 4 x 4's, sterile cast padding, Salvatore bandage were applied. The patient was then transferred to the recovery room in stable condition. The patient tolerated the procedure well and there were no complications. Christiano Hernandez, my physician assistant director, was present for the entire procedure. His assistance was essential and required for appropriate patient positioning, prepping and draping, surgical exposure, performing the technical details of the operation, placement the implants, closure of the wound, and placement of the sterile bandage. I attest to the content of the Intraoperative Record and any orders documented therein. Any exceptions are noted below.
[2021-04-09] MEDS ORDERED: METOCLOPRAMIDE HCL INJ 5 MG/ML 2 ML VIAL IV PRN (16:29)
[2021-04-09] MEDS ORDERED: NALOXONE HCL 0.4 MG/1 ML VIAL/CARP IV PRN (16:29)
[2021-04-09] MEDS ORDERED: HYDROmorphone INJ 0.5 MG/0.5 ML SYR IV PRN (16:29)
[2021-04-09] MEDS ORDERED: ALUMINUM/MAGNESIUM SUSP 30 ML UDC PO PRN (16:29)
[2021-04-09] MEDS ORDERED: MAGNESIUM HYDROXIDE SUSP 30 ML UDC PO PRN (16:29)
[2021-04-09] MEDS ORDERED: bisacodyL 10 MG SUPP PR PRN (16:29)
[2021-04-09] MEDS: SODIUM CHLORIDE 0.9% 1000ML 1,000 ML IV SCH (16:51)
[2021-04-09] MEDS ORDERED: ASCORBIC ACID 500 MG TAB PO SCH (17:00)
[2021-04-09] MEDS: KETOROLAC TROMETHAMINE 15 MG/ML VIAL IV SCH (17:48)
[2021-04-09] MEDS: GABAPENTIN 100 MG CAP PO SCH ×2 (17:48→20:48)
[2021-04-09] MEDS: traMADol HCL 50 MG TABLET PO PRN (19:54)
[2021-04-09] MEDS: ceFAZolin 2000MG 2,000 MG/15 ML SYR IV SCH (19:54)
[2021-04-09] MEDS: ASCORBIC ACID 500 MG TAB PO SCH (20:48)
[2021-04-09] MEDS ORDERED: TRANEXAMIC ACID / 0.7% NACL 1,000 MG/100 ML BAG IV SCH (20:48)
[2021-04-09] MEDS: DOCUSATE SODIUM 100 MG CAP PO SCH (20:49)
[2021-04-09] MEDS: ASPIRIN 81 MG ECTAB PO SCH (20:49)
[2021-04-09] MEDS ORDERED: NON-FORMULARY MEDICATION (Amino Acids [Amino Acid] Capsule) PO SCH (21:00)
[2021-04-09] MEDS ORDERED: SENNA 8.6 MG TAB PO SCH (21:00)
[2021-04-09] MEDS ORDERED: [UNRECOGNIZED DRUG - OTHER] PO SCH (21:00)
[2021-04-09] MEDS ORDERED: PANTOprazole 40 MG TAB PO SCH (21:00)
[2021-04-09] MEDS ORDERED: MAGNESIUM OXIDE PO SCH (21:00)
[2021-04-09] MEDS ORDERED: CALCIUM CARBONATE PO SCH (21:00)
[2021-04-09] MEDS ORDERED: lisinopril 20 MG TAB PO SCH (21:00)
[2021-04-09] MEDS ORDERED: CHOLECALCIFEROL PO SCH (21:00)
[2021-04-09] MEDS ORDERED: ZINC OXIDE PO SCH (21:00)
[2021-04-09] MEDS: ACETAMINOPHEN 500 MG TAB PO SCH (22:01)
[2021-04-10] MEDS: KETOROLAC TROMETHAMINE 15 MG/ML VIAL IV SCH ×3 (00:13→12:01)
[2021-04-10] MEDS: SODIUM CHLORIDE 0.9% 1000ML 1,000 ML IV SCH (02:43)
[2021-04-10] MEDS: ceFAZolin 2000MG 2,000 MG/15 ML SYR IV SCH (04:05)
[2021-04-10] MEDS: ACETAMINOPHEN 500 MG TAB PO SCH (05:17)
[2021-04-10] MEDS ORDERED: LEVOTHYROXINE SODIUM 50 MCG TABLET PO SCH (06:30)
[2021-04-10 06:43] LABS: Hematocrit (blood only) 37.5 % (37-47); Hemoglobin 12.6 g/dL (12.0-16.0); Mean Corpuscular Hemoglobin 30.7 pg (25-34); Mean Corpuscular Hgb Conc 33.6 g/dL (32-36); Mean Corpuscular Volume 91.5 fL (80-100); Platelet Count 166 K/uL (130-400); RDW Coefficient of Variation 13.8 % (11.5-14.5); RDW Standard Deviation 46.6 fL (36.4-46.3); White Blood Count 8.24 K/uL (4.8-10.8)
[2021-04-10 07:15] LABS: BUN Creatinine Ratio 13.2 (10-20); Calcium 8.2 mg/dl (8.5-10.1); Creatinine Clr Calc Pharmacy 82.6 ml/min; Est GFR (Non-African American) 88.9 ml/min; Potassium 3.6 mmol/L (3.5-5.1)
--- NOTE | 2021-04-10 07:29 | Orthopedic Progress Note ---
Date of Service April 10, 2021 Assessment & Plan (1) Status post total left knee replacement: Continue current pain management. PT/OT WBAT dvt prophylaxis will plan on discharge home today with home health if she does well with PT. Subjective .70 year old POD #! from Left tka. Pain is controlled. In fact, not really having much knee pain. No other complaints at this time. Review of Systems All systems reviewed & are unremarkable except as noted in HPI & below. Physical Exam . alert and oriented. NAD Left leg: dressing intact. Able to do straight leg raise. Able to dorsiflex and plantar flex. NVI Results & Data Results & Data Laboratory Results . Diagnostic Findings . PG Care Time/CCT Total # of Minutes Spent Total Time Spent with Patient: Total time spent is greater than 50% in coordination of care (as documented) at patient's floor/unit and/or counseling patient: Coding Level of Care Code 31295 Post Operative Follow-Up Diagnoses Status post total left knee replacement Z96.652
[2021-04-10] MEDS ORDERED: dexAMETHasone 10 MG in SYRINGE 0 ML IV SCH (08:00)
[2021-04-10] MEDS ORDERED: CHOLECALCIFEROL 1,000 UNITS 25 MCG TAB PO SCH (09:00)
[2021-04-10] MEDS ORDERED: MULTIVITAMIN TAB PO SCH (09:00)
--- NOTE | 2021-04-10 09:25 | Anesthesiology Progress Note ---
Date of Service April 10, 2021 Anesthesia Post Procedure Vital Signs Vital Signs: Temp Pulse Pulse Pulse Resp BP Pulse Ox 04/10/21 07:00 36.8 C 88 16 122/77 96 04/10/21 02:49 36.8 C 61 16 119/78 94 04/09/21 22:53 36.5 C 80 16 138/81 94 04/09/21 19:23 36.6 C 78 18 112/76 97 04/09/21 17:45 36.7 C 69 16 154/78 H 98 04/09/21 16:10 36.4 C L 68 14 138/76 94 04/09/21 15:40 36.5 C 80 12 126/79 95 04/09/21 15:20 83 14 129/63 95 04/09/21 15:10 83 14 115/64 96 04/09/21 15:00 83 14 120/69 95 04/09/21 14:51 36.7 C 86 14 115/63 96 04/09/21 10:52 36.6 C 98 H 18 170/78 H 98 Pain Intensity Left Knee: Pain Intensity: 2 Notes Mental Status: alert / awake / arousable and participated in evaluation Patient Amnestic to Procedure: Yes Nausea / Vomiting: adequately controlled Pain: adequately controlled Airway Patency, RR, SpO2: stable & adequate BP & HR: stable & adequate Hydration State: stable & adequate Neuraxial Anesthesia: was administered and sensory block resolved Anesthetic Complications: no major complications apparent
[2021-04-10] MEDS: traMADol HCL 50 MG TABLET PO PRN (09:28)
[2021-04-10] MEDS: GABAPENTIN 100 MG CAP PO SCH (09:37)
[2021-04-10] MEDS: ASPIRIN 81 MG ECTAB PO SCH (09:38)
[2021-04-10] MEDS: ASCORBIC ACID 500 MG TAB PO SCH (09:39)
[2021-04-10] MEDS: DOCUSATE SODIUM 100 MG CAP PO SCH (09:39)
[2021-04-10 11:28] VITALS: BP 108/71; TEMP 98.1; O2SAT 94
[2021-04-10] MEDS ORDERED: LETROZOLE 2.5 MG TAB PO SCH (11:30)
[2021-04-10 12:42] VITALS: PULSE 83
--- NOTE | 2021-04-13 07:28 | Discharge Summary ---
Date of Service April 13, 2021 Discharge Data Procedures Performed Operation Date: 04/09/21 12:30 Actual Procedures p Left Total Knee Arthroplasty(Left) - Charles Robles MD Hospital Course (1) Status post total left knee replacement: This patient is a 70 year old admitted on 04/09/21 and underwent total knee arthroplasty. She tolerated the procedure well and there were no complications. Transferred to the PACU post op and later to the orthopedic floor for further care. She was given ancef for antibiotic prophylaxis. SHe was also given COMPA stockings, SCDs, and aspirin for DVT prophylaxis. Hemoglobin, hematocrit, and vital signs were monitored during her hospital stay and remained stable. Did not require any blood transfusions. There were no complications during her hospital stay. By post op day #1 the patient was tolerating a regular diet, pain was reasonably controlled with oral pain medicine, and she was participating in physical therapy. On post op day #1 the patient was discharged home and set up with home health care. She was given printed discharge instructions including prescriptions for extra strength tylenol, aspirin, and tramadol. Continue physic al therapy, weight bearing as tolerated. Continue COMPA stockings. Follow up approximately 2 weeks post op or sooner if there are problems or concerns. Coding Level of Care Code None Diagnoses Status post total left knee replacement Z96.652
== END 2021-04-10 13:33 | disposition home health service (06) ==
LOC: ASU 10:02 → 3E 10:02